=== PATIENT | female | born 1945 | race Caucasian/White ===

== ENCOUNTER → 2019-09-09 14:13 | Outpatient (CLI) | payer OTHER, SELFPAY ==
[2019-09-09 14:26] LABS: RBC Urine None Seen (0-5/HPF)
[2019-09-09 15:12] LABS: Appearance Urine UA CLEAR; Bilirubin Urine UA NEGATIVE (NEGATIVE); Color Urine UA YELLOW; Glucose Urine UA NEGATIVE (Negative); Ketones Urine UA NEGATIVE (NEGATIVE); Leukocyte Esterase Urine UA TRACE (NEGATIVE); Nitrite Urine UA NEGATIVE (Negative); Occult Blood Urine UA NEGATIVE (Negative); Protein Urine UA NEGATIVE (Negative); Urobilinogen Urine UA 0.2 E.U./dL (0.2)
[2019-09-09 15:21] LABS: Squamous Epithelial Cell Urine 5-10 /HPF (0-5/HPF); WBC Urine 1-5/HPF (0-5/HPF)
[2019-09-09 15:22] LABS: Amorphous Sediment Urine 1+; Bacteria Urine Few (2-10); Culture Indicated Urine Specimen Cultured; Mucus Urine 1+ (Negative)
[2019-09-09 16:23] LABS: Add Manual Diff / Slide Review NO; Basophils Absolute Auto 100 /uL (0-100); Basophils Percent Auto 2.1 % (0-2); Eosinophils Absolute Auto 200 /uL (0-450); Eosinophils Percent Auto 3.5 % (2-4); Hematocrit 34.8 % (36-46); Hemoglobin 11.9 g/dL (12.0-16.0); Lymphocytes Absolute Auto 1800 /uL (1100-4500); Lymphocytes Percent Auto 32.8 % (25-40); Mean Corpuscular HGB Conc 34.1 % (30-36); Mean Corpuscular Hemoglobin 30.1 PG (26-34); Mean Corpuscular Volume 88.2 fL (80-100); Monocytes Absolute Auto 400 /uL (0-900); Monocytes Percent Auto 7.6 % (3-14); Neutrophils Absolute Auto 3000 /uL (1500-7000); Platelet Count 237 X10^3/uL (150-400); Red Blood Cell Count 3.94 X10^6/uL (4.0-5.2); Red Cell Distribution Width 14.2 % (11.6-14.8); White Blood Cell Count 5.6 X10^3/uL (4.5-11.0)
[2019-09-09 16:40] LABS: Hemoglobin A1C% w Est Avg Glu 5.5 % (4.0-6.0)
[2019-09-09 16:51] LABS: BUN Creatinine Ratio 18.1 (6-22); Blood Urea Nitrogen 29 mg/dL (7-17); Calcium 10.2 mg/dL (8.4-10.2); Carbon Dioxide 25 mmol/L (22-32); Chloride 103 mmol/L (98-107); Estimated Glomerular Filt Rate 31.3 mL/min (>60); Glucose 106 mg/dL (80-110); HEMOLYSIS < 15 (0-50); Sodium 136 mmol/L (137-145)
[2019-09-09 17:01] LABS: Potassium 5.6 mmol/L (3.4-5.1)
== END ==
PROVIDERS: Family Provider Orthopaedic Surgery; PCP Family Medicine; Referring Provider Orthopaedic Surgery; Visit Provider Orthopaedic Surgery
DX: Z01.818 Encounter for other preprocedural examination (principal); Z01.812 Encounter for preprocedural laboratory examination; N39.9 Disorder of urinary system, unspecified; Z13.1 Encounter for screening for diabetes mellitus; R73.9 Hyperglycemia, unspecified
CPT/HCPCS: 36415; 80048; 81001; 83036; 85025; 87086; 93005

== ENCOUNTER 2019-09-23 10:00 | Inpatient (IN) | payer OTHER, SELFPAY ==
[2019-09-09 12:42] VITALS: BMI 27.4
[2019-09-23] VITALS (13 sets, daily range): BP systolic 96–139; BP diastolic 53–79; PULSE 54–74; RESP 11–16; TEMP 35.6–36.9; O2SAT 94–100; BMI 27.4
--- NOTE | 2019-09-23 06:00 | DI.RAD.S_ITS ---
PROCEDURE: XR HIP W PEL IF DONE RT 2V INDICATIONS: revision right ARLYN TECHNIQUE: AP pelvis and lateral view of the right hip acquired. COMPARISON: [facility], CR, XR PELVIS WITH BILATERAL HIPS 5 VIEWS, 09/15/2019, 12:37. FINDINGS: Bones: Patient is status post right hip arthroplasty, with hardware components in expected positions. The hip joint appears congruent. The visualized bony structures appear intact. Soft tissues: Overlying postoperative changes are noted. No suspicious soft tissue densities. IMPRESSION: Expected appearance of right hip arthroplasty. Dictated by: Na Suarez M.D. on 09/23/2019 at 16:46 Approved by: Na Suarez M.D. on 09/23/2019 at 16:47
[2019-09-23] MEDS: CELECOXIB 200 MG CAPSULE PO (10:44)
[2019-09-23] MEDS: ACETAMINOPHEN 325 MG TABLET 975 MG PO (10:45)
[2019-09-23] MEDS: PREGABALIN 75 MG CAPSULE PO (10:45)
[2019-09-23] MEDS: LACTATED RINGERS 1,000 ML 42 ML IV ×3 (10:49→13:45)
[2019-09-23] MEDS: VANCOMYCIN 1,000 MG/200 ML PIGGYBACK 200 MG IV (10:49)
--- NOTE | 2019-09-23 11:45 | PM.PREOP ---
Pre-operative Note Interval Note History & Physical reviewed/Exam performed by Physician: Yes Changes to H&P: No
--- NOTE | 2019-09-23 11:52 | PM.PREOP ---
Pre-operative Note Interval Note History & Physical reviewed/Exam performed by Physician: Yes Changes to H&P: No
--- NOTE | 2019-09-23 11:52 | PM.OP.1 ---
Operative Date/Time/Diagnoses Date of procedure: 09/23/19 Time of procedure: 11:58 Pre-op diagnosis: right hip instability with h/o right total hip arthroplasty Post-op diagnosis: same Procedure & Clinicians Procedure: Revision right total hip arthroplasty acetabular component, right hip abductor repair Same procedure as scheduled: Yes Indications: The patient has had a right total hip arthroplasty and did well for about 10 years. She then fell and had a right hip dislocation. She has gone on to have problems with multiple episodes of instability and right hip dislocation over the last year or so. It has gotten progressively worse to the extent that she has had to go to the emergency room on multiple occasions. Non-operative management has failed and the patient has requested total hip replacement. The risks, benefits and alternatives to surgery were discussed with the patient prior to proceeding. Risks discussed included, but were not limited to, failure to relieve pain, leg length discrepancy, dislocation, stiffness, infection, nerve damage, deep venous thrombosis, pulmonary embolism, stroke, coma, heart attack, permanent paralysis and , as well as the potential need for eventual revision of the prosthetic. Surgeon: Milagro Wasserman Junior Technical Writer: Zachary Elliott Anesthesia Type: General and Spinal Operative Notes Findings: Mild polyethylene wear, evidence of posterior instability, moderate abductor tear, hip was stable prior to revision at 45? to about 70? of internal rotation, at 90? who stable to about 60-70 degrees of internal rotation, no posterior impingement, no evidence of anterior instability, after revision she was stable at 45? to about 80-90 degrees of internal rotation and at 90? to about 80? of internal rotation, there was no evidence of posterior impingement with maximal extension external rotation and there was no specific evidence of bony impingement. Closure Type: primary Specimen(s): none sent Prosthetic devices, grafts, tissues, transplants, or devices: Depuy [place] 54 x 36 mm +4 10 degree lipped liner, 36 mm +5 by ceramic head Applied: drain(s) Estimated Blood Loss (mL): 250 Blood products transfused: none Procedure in detail: The patient was seen in the pre-operative area, where the patient identified the right hip as the operative site and this was marked with my initials. The patient received pre-operative antibiotics and was taken to the operating room and placed on the operative table in the left lateral decubitus position after satisfactory anesthesia. A time analysis clerk out was performed. The right leg was prepared from the ankle to the iliac crest with ChloroPrep in the usual fashion and draped through sterile drapes. The hip was approached through an approximately 20 cm incision centered over the greater trochanter and curving gently posteriorly as it went proximally using the patient's previous incision. This was carried sharply to the fascia jo ann, which was divided and retracted with a self retaining retractor. The trochanteric bursa was excised with care being taken to avoid the sciatic nerve, which was identified and protected throughout the case. There was of significant tear of the anterior hip abductors and a bare spot on the greater trochanter where they had been torn from the anterior aspect of the greater trochanter. There was some retraction of the hip abductors but it was not severe and it was felt that this was probably a repairable tear. The short external rotators were incised and the capsulomuscular flap that had previously been repaired and clearly had been torn from the greater trochanter was raised and tagged for later repair. The hip was dislocated. Retractors were placed around the femur. Deep cultures were sent from synovial fluid, synovial tissue, and the acetabulum. The femoral head was removed without difficulty. We did a trial reduction with a +9 head with a 32 mm liner that showed some improved stability with no tendency towards impingement. It was felt that we needed the additional stability of going up to a 36 mm head. The patient's acetabular low liner was removed after making a pocket anteriorly and placing the femoral neck anterior to the acetabular component. A trial neutral liner was placed and we did trial reduction with neutral 36 mm +5 and +9 head. She really had good stability with the 36 mm head with both a +5 and +9 head the hip was dislocatable by hyperflexion and internal rotation of about 80?. There was no evidence of specific bony impingement and I did resect a portion of the anterior capsule in the superior area where there was possibility of impingement with maximum flexion and internal rotation. Patient has placed the patient through range of motion on multiple trials looked for the the location of dislocation with maximum abduction flexion and internal rotation and then I removed the trial neutral liner and did a trial with a +10 liner with the lip directed more posterior and inferior. I was able to improve the stability by about 10-15 degrees with a lipped face changing liner. Found the optimum combination of the rotation and location of the lip as well as head neck length. And did go to a +4 10 degree lipped liner. The liner was inserted without difficulty. Repeat trial with a +5 head showed excellent range of motion and stability and she had been lengthened because of the +4 lip liner. Leg lengths look symmetrical there was not excessive tension on the sciatic nerve and there was no evidence of posterior impingement with hyper extension and maximum external rotation. Final ceramic head was selected and placed. Hip was reduced. Marcaine and Exparel were injected. The posterior pseudo capsule was repaired with an interrupted nonabsorbable stitches. Attention was then directed to the hip abductor tear. The hip abductors especially anterior were noted to be torn from the anterior aspect of the trochanter. The bone was carefully freshened. A suture anchor was placed in the trochanter an Arthrex 5.5 by 14.7 bio composite anchor was inserted after drilling with a 2.5 drill bit. Multiple stitches were used to further tacked the abductor to the trochanter. Good quality repair was achieved. space was closed with interrupted sutures. Drain was placed. The fascia was closed with interrupted Vicryl. Subcutaneous tissue was closed with barbed stitches. The patient was stable in the position of sleep, of squatting, and could be put through a range of motion with 45 degrees internal rotation without dislocation. At 90 degrees flexion, internal rotation to 80 was possible before dislocation. This was felt to be satisfactory and the appropriate components were opened, and the trials were removed. The acetabular liner was impacted into position. A brief Betadine soak was performed while trialing with head options. The hip was meticulously irrigated with normal saline. Finally the femoral head was impacted onto the stem. The acetabulum was cleared of all material and the hip relocated one final time. A deep drain was placed and brought out anteriorly. The fascia jo ann was closed with Vicryl. The subcutaneous layer was closed with barbed sutures and SteriStrips. An sherwin dressing was applied and the patient was taken to recovery having tolerated the procedure well. Complications: none Post-operative Condition: stable Disposition: Acute Care Plan for aftercare: The patient will be maintained on a standard total hip replacement protocol with weight bearing as tolerated and posterior hip precautions. She has a hip abduction brace which I told the patient and the family she does not need to use as long as she is alert enough to be compliant with routine posterior hip precautions. She can be weight-bearing as tolerated on the right lower extremity. She should specifically attempt to avoid maximum hip flexion. The patient will receive Aspirin and sequential compression devices for DVT prophylaxis. The patient will be discharged home when safe for the home environment.
[2019-09-23] MEDS: CEFAZOLIN 2 GM/100 ML FROZ.PIGGY IV ×2 (12:24→21:20)
[2019-09-23] MEDS: TRANEXAMIC ACID 1,000 MG VIAL 2000 MG INJ ×2 (12:58→14:16)
--- NOTE | 2019-09-23 13:19 | SUR.OPER ---
Lateral on padded OR bed. Gel axillary roll. Arms secured on padded armboard with pillow supporting top arm. Padded hip positioner braces x4 - anterior and posterior chest and pelvis. Additional gel pad used anterior pelvis. Gel pad under bottom leg from knee to foot and secured with tape over sheet.
[2019-09-23] MEDS: BUPIVACAINE 0.25% W/ EPI 30 ML VIAL 60 ML INJ (13:29)
[2019-09-23] MEDS: BUPIVACAINE LIPOSOME 266 MG/20 ML VIAL INJ (13:29)
[2019-09-23] MEDS: SODIUM CHLORIDE IRRIG SOLUTION 250 ML, POVIDONE-IODINE SPONGE STICKS 1 APPLIC IRR (13:30)
--- NOTE | 2019-09-23 15:57 | SUR.PHASEI ---
1535 IV note continued - IV infusing well, anesthesia reports that it was uncomfortable to her prior to surgery. Gave pt the option of a restart or leaving this one in -- she chose to leave it in.
--- NOTE | 2019-09-23 16:13 | SUR.PHASEI ---
Patient stable, x-ray was done, waiting for floor nurse to return call for report.
--- NOTE | 2019-09-23 16:30 | SUR.PHASEI ---
Addendum entered by Luly Boggs R.N. 09/23/19 16:35: Bed down and locked, call light within reach, SCDs on. R hip dressing remains CDI w/hemovac compressed. Original Note: 1620 to floor w/cane and clothing bag. VSS, C/o mild pain as we were in transport - didn't give a number when asked. Upon arrival, requested that INTERNAL COMBUSTION ENGINE ASSEMBLER give her applesauce (pts choice) in prep for PO rx. INTERNAL COMBUSTION ENGINE ASSEMBLER calling float nurse per primary RN request, to give her med. Pt. very pleasant, answers have been appropriate. No nausea. No questions from pt or staff upon transfer.
[2019-09-23] MEDS: IBUPROFEN 400 MG TABLET PO ×2 (18:52→21:21)
[2019-09-23] MEDS: LACTATED RINGERS 1,000 ML 125 ML IV (18:52)
[2019-09-23] MEDS: ROSUVASTATIN 10 MG TABLET PO (21:20)
[2019-09-23] MEDS: ASPIRIN EC 81 MG TABLET PO (21:20)
[2019-09-23] MEDS: METOPROLOL IR 25 MG TABLET PO (21:20)
[2019-09-23] MEDS: DOCUSATE 100 MG CAPSULE PO (21:20)
[2019-09-23] MEDS: ACETAMINOPHEN 325 MG TABLET 650 MG PO (21:20)
[2019-09-23] MEDS: buPROPion SR 150 MG TAB PO (21:20)
--- NOTE | 2019-09-23 23:32 | PC.NURSE ---
Post-op note: Jen brought from OR via hospital bed, she is awake, pleasant & oriented to self, daughter & situation. Forgetful to events & details which daughter says is baseline. VS are stable, RA oxygen 100% with continuous pulse ox in place. She has reported little to no pain, rates pain to right hip as just achy at 2/10, medicated with PO Tylenol & Ibuprofen. Drsg to right hip remains CDI, hemovac with 60 ml sero-sang drainage tonight. Able to transfer to [facility] and void x 2, needing 1 assist/fww/gait belt. Total hip precautions in place, bed alarm active for safety. Pt using call button appropriately, sometimes waving nurse in when nurse walking by room.
[2019-09-24] MEDS: IBUPROFEN 400 MG TABLET PO ×4 (01:03→13:59)
[2019-09-24] MEDS: LACTATED RINGERS 1,000 ML 125 ML IV (01:03)
[2019-09-24 01:15] VITALS: BP 110/59; PULSE 58; RESP 16; TEMP 36.3; O2SAT 98
[2019-09-24 03:50] VITALS: BP 117/62; PULSE 58; RESP 16; TEMP 36.4; O2SAT 99
[2019-09-24] MEDS: CEFAZOLIN 2 GM/100 ML FROZ.PIGGY IV (05:00)
[2019-09-24 05:58] LABS: Hematocrit 27.9 % (36-46); Hemoglobin 9.5 g/dL (12.0-16.0)
[2019-09-24 07:15] VITALS: BP 110/60; PULSE 60; RESP 18; TEMP 36.2; O2SAT 98
--- NOTE | 2019-09-24 08:27 | PM.PNPO.1 ---
Subjective Subjective Date Patient Seen: 09/24/19 Time Patient Seen: 08:27 Interval history: POD #1 s/p right revision total hip arthroplasty with Dr. Wasserman. Patient doing well this morning. She worked with PT this morning. She has no complaints of pain this morning. Exam Vital Signs (past 8 hours): - 09/24/19 01:15 09/24/19 03:50 09/24/19 07:15 Temperature 97.4 F L 97.6 F 97.2 F L Pulse Rate 58 L 58 L 60 Respiratory Rate 16 16 18 Blood Pressure 110/59 L 117/62 110/60 Pulse Oximetry 98 99 98 Oxygen Delivery Method Room Air Oxygen Flow Rate 0 Narrative Exam Narrative: Patient sitting in bedside chair in NAD. She is alert and oriented X3. Dressing on knee is CDI. Drain is in place. Calves are soft, compressible, and nontender bilaterally. DP pulses symmetrical. Objective Labs Result Diagrams: 09/24/19 05:44 Labs: Laboratory Results - last 24 hr 09/24/19 05:44 Hgb 9.5 L Hct 27.9 L Assessment & Plan Post-op Postoperative Procedures: Procedures Operation Date: 09/23/19 12:15 Actual Procedures Side Surgeon p Revision of acetabular component of hip replacement with right hip abductor repair Right Milagro A MD Lux Pain is well controlled with Tylenol and ibuprofen. Patient provided a prescription for tramadol in case she has any increase in pain while at home. Per Dr. Wasserman note patient will be on a standard total hip replacement protocol with weight bearing as tolerated and posterior hip precautions. She has a hip abduction brace which Dr. Wasserman told the patient and the family she does not need to use as long as she is alert enough to be compliant with routine posterior hip precautions. She can be weight-bearing as tolerated on the right lower extremity. She should specifically attempt to avoid maximum hip flexion. She is working with physical therapy throughout the day. Plan to discharge home today if she is mobilizing safely with adequate pain control. Quality VTE Deep Vein Thrombosis/Pulmonary Embolism Present on Admission: No
[2019-09-24] MEDS: ASCORBIC ACID 500 MG TABLET PO (09:43)
[2019-09-24] MEDS: DOCUSATE 100 MG CAPSULE PO (09:44)
[2019-09-24] MEDS: ACETAMINOPHEN 325 MG TABLET 650 MG PO ×2 (09:44→14:00)
[2019-09-24] MEDS: METOPROLOL IR 25 MG TABLET PO (09:44)
[2019-09-24] MEDS: buPROPion SR 150 MG TAB PO (09:45)
[2019-09-24] MEDS: ASPIRIN EC 81 MG TABLET PO (09:45)
--- NOTE | 2019-09-24 11:20 | PC.NURSE ---
Patients aquacel dressing is cdi. She is moving well with physical therapy. She has a brace that she was wearing prior to surgery as her hip would dislocate. Daughter states that she does not need to wear this according to Dr. Wasserman as the procedure will not cause her leg to have problems anymore. CMS wnl and ppx2. She will work with physical therapy again and then possibly discharge home. Pain level was a 4/10 and she has been using tylenol and ibuprofen which have both been working for her discomfort. Patient has also had 2 bowel movments and is moving well.
--- NOTE | 2019-09-24 11:22 | PT.IIE ---
Current Diagnoses Dislocation of internal right hip prosthesis, initial encounter (09/23/19) Surgery Performed Operation Date: 09/23/19 12:15 Actual Procedures p Revision of acetabular component of hip replacement with right hip abductor repair(Right) - Milagro Wasserman MD Surgical History (Last Updated 09/09/19 @ 13:18 by Mary Ellen Birch RN) History of arthroplasty of right hip (Acute) History of bilateral tubal ligation (Acute) History of open reduction and internal fixation (ORIF) procedure (Acute 01/28/15) Hx of bilateral cataract extraction (Acute) Hx of endovascular stent graft for abdominal aortic aneurysm (Acute ~2014) S/p bilateral blepharoplasty (Acute) Medical History (Last Updated 09/10/19 @ 07:53 by Mary Ellen Birch RN) AAA (abdominal aortic aneurysm) (Acute ~2014) Acid reflux (Acute) Anxiety (Acute) CKD (chronic kidney disease), stage II (Acute) Confusion (Acute) Deviated septum (Acute) Easy bruisability (Acute) Former smoker (Acute) HLD (hyperlipidemia) (Acute) HTN (hypertension) (Acute) PAF (paroxysmal atrial fibrillation) (Acute) Physical Therapy Inpatient Evaluation/Re-Eval M1 PT/OT-IP Prior Functional Status Start: 09/24/19 08:26 Freq: NEEDED Status: Active Protocol: Document 09/24/19 08:50 (Rec: 09/24/19 11:22 [id number]) Medical Review Prior Functional Status Medical History Reviewed Yes Diet/Fluid Consistency Regular Communication Per RN, pt seems to have short term memory deficits. [place] at baseline Mobility and Gait Pt is independent for all mobility at home and community without using AD. Had 3 falls within the past 3 months. Pt dislocated her R hip after her first fall and dislocated again while donning her socks in seated position. Pt seems to have difficulty following precautions. Activities of Daily Living and IADL's independent with all ADLs without AD. Pt's dtr Daniella assisted in IADLs: driving, grocery shopping and driving pt to doctors appointment. Social History Household Members none Living Arrangements House Number of Floors (Floors) One Floor Number of Stairs To Enter/Railing? level entry Home Environment Standard Height Toilet Home Equipment Straight Cane,Tub Transfer Bench,Brick Carrier,Sock Aid,Grab Bars Near Toilet Employment Status Retired Additional Social History Comment Pt lives alone in [place] with dtr Daniella lives closeby in [facility]. Her other dtr lives in [place] but she will fly in tomorrow to stay with pt as long as she needed. Pt had a R ARLYN 07/20/2008 but she recently had multiple dislocations. Per Dr. Wasserman note, pt seems to have difficulty following her precautions. M2 PT-IP Current Condition Start: 09/24/19 08:26 Freq: NEEDED Status: Active Protocol: Document 09/24/19 08:50 HH (Rec: 09/24/19 11:22 [id number]) Physical Therapy Current Condition Current Condition Evaluation Date 09/24/19 Treatment Diagnosis Revision of R ARLYN (post approach) Onset Date 09/23/19 Precautions Posterior Hip Precautions No Hip Flexion > 90 degrees,No Hip Internal Rotation,No Hip Adduction Brace Hip abduction brace Other Precautions Per Dr. Wasserman note, Pt will follow standard total hip replacement protocol with weight bearing as tolerated and posterior hip precautions. She has a hip abduction brace which I told the patient and the family she does not need to use as long as she is alert enough to be compliant with routine posterior hip precautions. She can be weight-bearing as tolerated on the right lower extremity. She should specifically attempt to avoid maximum hip flexion Weight Bearing Status Weight Bearing Status Weight Bear as Tolerated M3 PT-IP Subjective Start: 09/24/19 08:26 Freq: NEEDED Status: Active Protocol: Document 09/24/19 08:50 HH (Rec: 09/24/19 11:22 [id number]) Subjective Physical Therapy Visit Type Type Initial Evaluation Visit Start Time 08:50 Visit Stop Time 09:20 Total Visit Minutes [address]. Number of PLASTIC MOULD MAKER Visits 0 Physical Therapy Visit Comments Patient Comments Im feeling pretty good today. Patient Goals To return home with her 2 dtrs . Therapy Pain Assessment Pain When Pain Assessed During Mobility Pain Present Pain Present Pain Reported Location R hip Intensity 3 Scale Used Numeric (1 - 10) Description Aching Pain Management Techniques Modification of Treatment M4 PT-IP Mobility and Gait Start: 09/24/19 08:26 Freq: NEEDED Status: Active Protocol: Document 09/24/19 08:50 HH (Rec: 09/24/19 11:22 [id number]) PT-Bed Mobility Assessment Supine to Sit Supine to Sit Contact Guard Assistance Scooting Scooting to Edge of Bed Contact Guard Assistance PT-Transfer Assessment Sit to and From Stand Sit to and from Stand Contact Guard Assistance,Use of Upper Extremities Equipment Transfer Assistive Device Gait Belt,Front Wheeled Walker Orthotic/Prosthetic Devices or Brace: Yes Transfers Transfer Destination Bed,Chair,Toilet Transfer Technique Stand Step Pivot Transfer Ability Level of Assist Contact Guard Assistance,Use of Upper Extremities Comments Mobility Comments Pt was in bed upon assessment. With R leg turned in and slightly crossed. Pt does not recall her precautions and needed education on all 3 of them. Pt then performed supine to long sit and primarily WB through her L elbow and hip to avoid hip flexion. She then used UEs to lift and pivot her RLE towards L side of EOB. She was able to scoot forward to EOB. Pt then stood up but did not use staggered stance to avoid hip flexion. Assisted pt to jacek hip abduction brace after since she was not able to reach down and fastern lower compartment. Pt then amb with FWW and CGA to bathroom. She cont needed reminder to avoid hip flexion from stand to sit. She then was able to stand with 1UE support during pericare. Pt amb with PT and FWW after. She demonstrated a trunk forward lean and slow step to gait. She completed 90 ft and reported increased R hip pain and requested to return to room, followed by transferring to chair with call light within reach. Pt was not able to recall post op precautions and this PT provided post op folder. Gait Assessment Gait Gait Assistance Required: Contact Guard Assist Distance (Feet) 90 Able to Maintain Weight Bearing Status Yes During Gait Assistive Devices Assistive Device Gait Belt,Front Wheeled Walker Orthotic/Prosthetic Devices or Brace: Yes Gait Deviations General Gait Pattern Antalgic,Decreased Stride Length,Decreased Feet Clearance,Flexed Trunk,Lateral Trunk Lean,Step-to Gait Factors Limiting Gait Function Factors Limiting Gait Function Decreased Activity Tolerance, Decreased Strength,Limited Range of Motion,Pain,Poor Balance,Poor Safety Awareness Comments Gait Comments see mobility section Stair Climbing Assessment Comments Stair Climbing Comments no stairs at home PT-Balance Assessment Sitting Balance and Reactions Static Sitting Balance Ability Normal Dynamic Sitting Balance Ability Normal Standing Balance and Reactions Static Standing Balance Ability Normal Dynamic Standing Balance Ability Good Device Used FWW M5 PT-IP Objective Assessments Start: 09/24/19 08:26 Freq: NEEDED Status: Active Protocol: Document 09/24/19 08:50 (Rec: 09/24/19 11:22 [id number]) Orientation Orientation/Cognition Level of Alertness Alert Orientation Name,Age,Birthday,Month,Date, Year,Day of Week,Place, Situation Language Function Ability No Deficits Noted Safety Awareness Decreased Safety Awareness Memory Description Short Term Impaired Comments Pt unable to recall post op precautions and needed reminder for transfer techniques to avoid excessive hip flexion Gross Range of Motion Upper Extremity ROM Assessment Within Functional Limits Lower Extremity ROM Assessment Right Impaired Strength Upper Extremity Strength Assessment Within Functional Limits Lower Extremity Strength Assessment Right Impaired Hip 3+/5 Knee 4+/5 Ankle 5/5 M6 PT-IP Treatment Start: 09/24/19 08:26 Freq: NEEDED Status: Active Protocol: Document 09/24/19 08:50 (Rec: 09/24/19 11:22 [id number]) Physical Therapy Treatment Exercises Exercises Ankle Pumps,Gluteal Sets,Quad Sets Education Education Provided Precautions,Weight Bearing Status,Post-Op Packet,Safety Brace Education Donning,Aldrich,Patient M7 PT-IP Assessment and Plan Start: 09/24/19 08:26 Freq: NEEDED Status: Active Protocol: Document 09/24/19 08:50 (Rec: 09/24/19 11:22 [id number]) PT Summary Assessment and Plan Potential Rehabilitation Potential Excellent Status of Condition at Evaluation Stable Summary Impairments Pain,ROM,Strength,Balance, Cognition,Bed Mobility, Transfers,Gait,Activity Tolerance Assessment Summary This is a mod complexity evaluation for this 74yo female s/p POD 2 revision of R ARLYN (posterior approach). PLOF: Independent for all mobility without AD and she lives alone. She did have multiple falls and dislocated her R hip 3 times. CLOF: Pt seems to have poor short term memory and was not able to follow post op precautions consistently. She needed cues during bed mobility and transfers to avoid excessive hip flexion, and she does need help with jacek/doff her hip abduction brace. But she overall demonstrated CGA for all mobility. Pt will require a CG (dtr ) training this pm before d/c to review post op precautions, barce fitting and safe pt handling. Goals Bed Mobility Goal Standby Assistance Transfer Goal Standby Assistance,Front Wheeled Walker Gait Goal Standby Assistance,Front Wheel Walker Gait Distance 150 Other Goals able to recall precautions Days to Meet Goals 3 Frequency of Treatment Frequency Of Treatment Twice a Day Treatment Plan Physical Therapy Treatment Plan Bed Mobility Training,Transfer Training,Gait Training, Therapeutic Exercise,Balance Retraining,Post Op Education, Discharge Planning,Hot or Cold Pack,Neuromuscular Re-ed Other Recommendations and Next Treatment CG training (jacek/doff brace) Focus review precautions transfer training with staggered stance Recommendations To Nursing Amount of Assist Needed 1 Person Assist Discharge Recommendations PT Discharge Recommendations Home with Assistance, Outpatient PT Transportation Needs at Discharge Private Vehicle
[2019-09-24 11:40] VITALS: BP 114/71; PULSE 58; RESP 18; TEMP 36.5; O2SAT 98
--- NOTE | 2019-09-24 13:45 | PT.IPTN ---
Current Diagnoses Dislocation of internal right hip prosthesis, initial encounter (09/23/19) Surgery Performed Operation Date: 09/23/19 12:15 Actual Procedures p Revision of acetabular component of hip replacement with right hip abductor repair(Right) - Milagro Wasserman MD Physical Therapy Treatment Note M2 PT-IP Current Condition Start: 09/24/19 08:26 Freq: NEEDED Status: Active Protocol: Document 09/24/19 08:50 HH (Rec: 09/24/19 11:22 [id number]) Physical Therapy Current Condition Current Condition Evaluation Date 09/24/19 Treatment Diagnosis Revision of R ARLYN (post approach) Onset Date 09/23/19 Precautions Posterior Hip Precautions No Hip Flexion > 90 degrees,No Hip Internal Rotation,No Hip Adduction Brace Hip abduction brace Other Precautions Per Dr. Wasserman note, Pt will follow standard total hip replacement protocol with weight bearing as tolerated and posterior hip precautions. She has a hip abduction brace which I told the patient and the family she does not need to use as long as she is alert enough to be compliant with routine posterior hip precautions. She can be weight-bearing as tolerated on the right lower extremity. She should specifically attempt to avoid maximum hip flexion Weight Bearing Status Weight Bearing Status Weight Bear as Tolerated M3 PT-IP Subjective Start: 09/24/19 08:26 Freq: NEEDED Status: Active Protocol: Document 09/24/19 13:00 HH (Rec: 09/24/19 13:44 [email or web address]) Subjective Physical Therapy Visit Type Type Treatment Note Visit Start Time 13:00 Visit Stop Time 13:21 Total Visit Minutes 21 Notes ismael Brewer attended session. AVELINO Marie confirmed with Dr. Wsaserman that pt only needs to wear hip abduction brace if pt is unable to follow post op precautions. Number of TRAVEL OT Visits 0 Physical Therapy Visit Comments Patient Comments Im ready to go home Therapy Pain Assessment Pain When Pain Assessed During Mobility Pain Present Pain Present Pain Reported Location R hip Intensity 3 Scale Used Numeric (1 - 10) Description Aching Pain Management Techniques Modification of Treatment M4 PT-IP Mobility and Gait Start: 09/24/19 08:26 Freq: NEEDED Status: Active Protocol: Document 09/24/19 13:00 HH (Rec: 09/24/19 13:44 HH [id number]) PT-Transfer Assessment Sit to and From Stand Sit to and from Stand Contact Guard Assistance,Use of Upper Extremities Equipment Transfer Assistive Device Gait Belt,Front Wheeled Walker Orthotic/Prosthetic Devices or Brace: Yes Transfers Transfer Destination Chair Transfer Technique Stand Step Pivot Transfer Ability Level of Assist Contact Guard Assistance,Use of Upper Extremities Comments Mobility Comments Pt was up in chair upon PT arrival. Dtr at bedside. Pt was only able to recall 1/3 precautions and needed cues to remind her using staggered stance for sit to stand. Pt needed to use trunk rocking motion x3 to stand up. She then amb and did step climbing with PT and dtr. She returned to chair safely after with dtr CGA and verbal cues for hand placements. Call light placed within reach,. Gait Assessment Gait Gait Assistance Required: Contact Guard Assist Distance (Feet) 180 Able to Maintain Weight Bearing Status Yes During Gait Assistive Devices Assistive Device Gait Belt,Front Wheeled Walker Orthotic/Prosthetic Devices or Brace: Yes Gait Deviations General Gait Pattern Antalgic,Decreased Stride Length,Decreased Feet Clearance,Flexed Trunk,Lateral Trunk Lean,Step-to Gait Factors Limiting Gait Function Factors Limiting Gait Function Decreased Activity Tolerance, Decreased Strength,Limited Range of Motion,Pain,Poor Balance,Poor Safety Awareness Comments Gait Comments Pt amb with step to pattern and FWW CGA. Pt did 90 feet with PT CGA followed by another 90 feet with dtr. Pt overall demonstrates antalgic gait with trunk lean to L. Stair Climbing Assessment Evaluation Level of Assist On Stairs Contact Guard Assistance,1 Person Assistance Devices Stair Climbing Assistive Devices Front Wheel Walker Technique/Endurance Stair Climbing Direction Ascend and Descend Stair Climbing Technique Step to Step Number of Steps Climbed 1 Stair Climbing Set # Repetitions (reps) 2 Comments Stair Climbing Comments Pt needed max cues for step sequence and walker placement on platform step. Pt was able to follow 1 step command and needed PT/ CG to stabilize her walker during ascend/ descend . M5 PT-IP Objective Assessments Start: 09/24/19 08:26 Freq: NEEDED Status: Active Protocol: Document 09/24/19 08:50 HH (Rec: 09/24/19 11:22 [id number]) Orientation Orientation/Cognition Level of Alertness Alert Orientation Name,Age,Birthday,Month,Date, Year,Day of Week,Place, Situation Language Function Ability No Deficits Noted Safety Awareness Decreased Safety Awareness Memory Description Short Term Impaired Comments Pt unable to recall post op precautions and needed reminder for transfer techniques to avoid excessive hip flexion Gross Range of Motion Upper Extremity ROM Assessment Within Functional Limits Lower Extremity ROM Assessment Right Impaired Strength Upper Extremity Strength Assessment Within Functional Limits Lower Extremity Strength Assessment Right Impaired Hip 3+/5 Knee 4+/5 Ankle 5/5 M6 PT-IP Treatment Start: 09/24/19 08:26 Freq: NEEDED Status: Active Protocol: Document 09/24/19 08:50 HH (Rec: 09/24/19 11:22 HH [id number]) Physical Therapy Treatment Exercises Exercises Ankle Pumps,Gluteal Sets,Quad Sets Education Education Provided Precautions,Weight Bearing Status,Post-Op Packet,Safety Brace Education Donning,Sigurd,Patient M7 PT-IP Assessment and Plan Start: 09/24/19 08:26 Freq: NEEDED Status: Active Protocol: Document 09/24/19 13:00 HH (Rec: 09/24/19 13:44 HH [email or web address]) PT Summary Assessment and Plan Potential Rehabilitation Potential Excellent Status of Condition at Evaluation Stable Summary Impairments Pain,ROM,Strength,Balance, Cognition,Bed Mobility, Transfers,Gait,Activity Tolerance Assessment Summary Pt shows improved amb distance and mobility without using abduction brace. She overall needed constant cues for post op precautions, transfer techniques and step sequence. Pt's dtr demonstrates good pt handling and able to provide cues during CG training. Pt is safe to be d/c at this point with both daughters' assistance, followed by outpatient PT. Goals Bed Mobility Goal Standby Assistance Transfer Goal Standby Assistance,Front Wheeled Walker Gait Goal Standby Assistance,Front Wheel Walker Gait Distance 150 Other Goals able to recall precautions Days to Meet Goals 3 Frequency of Treatment Frequency Of Treatment Twice a Day Treatment Plan Physical Therapy Treatment Plan Bed Mobility Training,Transfer Training,Gait Training, Therapeutic Exercise,Balance Retraining,Post Op Education, Discharge Planning,Hot or Cold Pack,Neuromuscular Re-ed Other Recommendations and Next Treatment CG training (jacek/doff brace) Focus review precautions transfer training with staggered stance Recommendations To Nursing Amount of Assist Needed 1 Person Assist Discharge Recommendations PT Discharge Recommendations Home with Assistance, Outpatient PT Transportation Needs at Discharge Private Vehicle
--- NOTE | 2019-09-24 15:04 | CM.DANOTE ---
DCP Brief Assessment Note Patient is a 74 year old female who was admitted on 09/23/19 for Right Hip Replacement Surg. Pt has [facility] for insurance and her PCP is Dr. Messi Miranda. EMR was reviewed. Per Ortho MD, pt with a hx of multiple hip dislocations and pt tolerated procedure well and safe for d/c after PT eval and recommendations. No identified barriers to discharge. Per PT, pt was able to ambulate and had Dtr attend for CG training and recommend safe d/c home with Dtr assist and outpt PT and pt safe for transport via private vehicle. No bedside assessment completed due to triage needs and no barriers identified. Plan: Patient to d/c home via Dtr POV today and to stay with pt to assist and pt is set up at [facility] in [place] for outpt PT. No SW needs at this time. ALLYSON Steiner
== END 2019-09-24 14:35 | disposition home or self-care (01) | DRG 468 ==
PROVIDERS: Admitting Provider Orthopaedic Surgery; Family Provider Orthopaedic Surgery; PCP Family Medicine; Referring Provider Family Medicine; Visit Provider Orthopaedic Surgery
PROC: 0SP909Z Removal of Liner from Right Hip Joint, Open Approach (ICD-10-PCS; principal; 2019-09-23 12:15)
DX: T84.020A Dislocation of internal right hip prosthesis, initial encounter (principal); E78.5 Hyperlipidemia, unspecified; I48.0 Paroxysmal atrial fibrillation; I12.9 Hypertensive chronic kidney disease with stage 1 through stage 4 chronic kidney disease, or unspecified chronic kidney disease; S39.013A Strain of muscle, fascia and tendon of pelvis, initial encounter; N18.2 Chronic kidney disease, stage 2 (mild); Z87.891 Personal history of nicotine dependence
CPT/HCPCS: 36415; 73502; 85014; 85018; 87070; 87075; 87077; 87176; 87186; 87205; 97116; 97162; C1776; C9290; J0690; J2704

== ENCOUNTER 2019-12-23 01:52 | Observation (INO) | payer OTHER, SELFPAY ==
[2019-09-23 18:00] VITALS: BMI 27.4
[2019-12-23] VITALS (21 sets, daily range): BP systolic 109–149; BP diastolic 49–70; PULSE 58–79; RESP 8–20; TEMP 36.1–37.6; O2SAT 92–100; BMI 26.3
--- NOTE | 2019-12-23 | DI.RAD.S_ITS ---
PROCEDURE: XR PELVIS 1-2V INDICATIONS: dislocated right hip TECHNIQUE: 2 views of the pelvis acquired. COMPARISON: [facility], CR, XR PELVIS WITH LATERAL HIP RIGHT, 10/22/2019, 10:47. FINDINGS: Bones: There is dislocation of the right hip prosthesis, likely posterosuperiorly. No definite fracture identified on the current study. Mild to moderate degeneration of the left hip again noted. Soft tissues: Visualized bowel gas pattern is normal. An endovascular stent graft is partially visualized in the elbows. Surgical clips are noted in the left hemipelvis. IMPRESSION: 1. Dislocation of right hip prosthesis. No definite fracture identified. Dictated by: Douglas Rosario M.D. on 12/23/2019 at 9:45 Approved by: Douglas Rosario M.D. on 12/23/2019 at 9:47
[2019-12-23] MEDS: HYDROMORPHONE 0.5 MG INJ IV ×3 (02:14→19:59)
[2019-12-23] MEDS: SODIUM CHLORIDE 0.9% 1,000 ML 100 ML IV ×3 (02:14→16:13)
[2019-12-23 02:26] LABS: Add Manual Diff / Slide Review NO; Basophils Absolute Auto 100 /uL (0-100); Basophils Percent Auto 1.1 % (0-2); Eosinophils Absolute Auto 0 /uL (0-450); Eosinophils Percent Auto 0.4 % (2-4); Hematocrit 33.1 % (36-46); Hemoglobin 11.8 g/dL (12.0-16.0); Lymphocytes Absolute Auto 1300 /uL (1100-4500); Lymphocytes Percent Auto 14.8 % (25-40); Mean Corpuscular HGB Conc 35.6 % (30-36); Mean Corpuscular Hemoglobin 31.5 PG (26-34); Mean Corpuscular Volume 88.5 fL (80-100); Monocytes Absolute Auto 500 /uL (0-900); Monocytes Percent Auto 5.3 % (3-14); Neutrophils Absolute Auto 7100 /uL (1500-7000); Neutrophils Percent Auto 78.4 % (50-75); Platelet Count 239 X10^3/uL (150-400); Red Blood Cell Count 3.74 X10^6/uL (4.0-5.2); Red Cell Distribution Width 13.6 % (11.6-14.8); White Blood Cell Count 9.1 X10^3/uL (4.5-11.0)
[2019-12-23 02:32] LABS: Alanine Aminotransferase 22 IU/L (<35); Albumin 4.3 g/dL (3.5-5.0); Albumin Globulin Ratio 1.5 (1.0-2.8); Alkaline Phosphatase 66 U/L (38-126); Aspartate Aminotransferase 36 IU/L (14-36); BUN Creatinine Ratio 15.7 (6-22); Bilirubin Total 0.4 mg/dL (0.2-1.3); Blood Urea Nitrogen 17 mg/dL (7-17); Calcium 9.8 mg/dL (8.4-10.2); Carbon Dioxide 24 mmol/L (22-32); Chloride 102 mmol/L (98-107); Estimated Glomerular Filt Rate 49.3 mL/min (>60); Globulin 2.9 g/dL (1.7-4.1); Glucose 116 mg/dL (80-110); HEMOLYSIS < 15 (0-50); Potassium 3.8 mmol/L (3.4-5.1); Sodium 132 mmol/L (137-145); Total Protein 7.2 g/dL (6.3-8.2)
--- NOTE | 2019-12-23 05:05 | PM.HP.1 ---
History of Present Illness History of Present Illness Date Patient Seen: 12/23/19 Time Patient Seen: 02:30 Chief complaint: Total Right Hip Dislocation Narrative: Ms. Keiry Mayes is a 74-year-old female patient with a history hypertension, paroxysmal atrial fibrillation, abdominal aortic aneurysm without rupture, chronic kidney disease stage 2, hyperlipidemia, osteoarthritis, anxiety depression and glaucoma who presents to the ER at [place] after bending over in her recliner to put a sock on and dislocating her right total hip. The patient presented to the ER at which time they attempted close reduction with procedural sedation with ketamine and propofol x2 without successful reduction. Patient had undergone a revision of her right total hip acetabular component on September [address] Wasserman. The patient reports no complications following the procedure and had not done extensive physical therapy related to the COVID-19 pandemic. The ER physician contacted Dr. Rainey, orthopedics in consultation who agreed to accept the patient and recommended transfer to [facility]. Report is received from Dr. Whelan at [facility] in agreed to accept the patient as a direct admit to the acute care floor. In the ER at [facility] in [place] the patient had a blood pressure 141/73, temperature 97.9?, heart rate of 66, respiratory rate of 24. Patient was transported [facility] without complication. Upon admission to the acute care floor the patient is found to have a temperature 99.7?, blood pressure 130/70, heart rate 75, respirations of 18 saturating 100% air. Patient she is complaint is right hip pain in the low posterior and lateral right hip with any movement. The patient reports no recent illness, fevers or chills, COVID-19 exposures. She denies headache or visual changes nasal congestion or sore throat. She denies complaints of chest pain or palpitations, she shortness of breath cough or wheezing. She has no abdominal pain, heartburn, nausea vomiting. She denies constipation or diarrhea and has no difficulty urinating. Patient History Medical History (Updated 09/10/19 @ 07:53 by Mary Ellen Birch RN) AAA (abdominal aortic aneurysm) (Acute ~2015) Acid reflux (Acute) Anxiety (Acute) CKD (chronic kidney disease), stage II (Acute) Confusion (Acute) Deviated septum (Acute) Easy bruisability (Acute) Former smoker (Acute) HLD (hyperlipidemia) (Acute) HTN (hypertension) (Acute) PAF (paroxysmal atrial fibrillation) (Acute) Surgical History (Updated 12/23/19 @ 05:19 by EMILY George) History of arthroplasty of right hip (Acute) History of bilateral tubal ligation (Acute) History of open reduction and internal fixation (ORIF) procedure (Acute 01/28/15) History of 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 joint (Acute) Hx of bilateral cataract extraction (Acute) Hx of endovascular stent graft for abdominal aortic aneurysm (Acute ~2014) S/p bilateral blepharoplasty (Acute) Family & Social History Family History (Updated 12/23/19 @ 05:20 by EMILY George) Father Peripheral vascular disease Coronary artery disease Hypertension Mother Alzheimer's dementia Coronary artery disease Social History: household members none Prior Living Arrangements House Safety & Behavioral: Feels Safe in Current Yes Environment Been Physically Hurt or No Threatened By a Person Suicidal Ideation Description None Suicide Plan Description No Plan Tobacco & Substance use: Tobacco type cigarettes Smoking Status Former smoker alcohol intake former Substance Use Type does not use Meds Home Medications and Allergies Home Medications Medication Instructions Recorded Confirmed Type amlodipine 10 mg PO BEDTIME 09/09/19 12/23/19 History bupropion HCl 150 mg PO BID 09/09/19 12/23/19 History lisinopril-hydrochlorothiazide 1 tab PO DAILY 09/09/19 12/23/19 History loratadine [Claritin] 10 mg PO DAILY PRN 09/09/19 12/23/19 History metoprolol tartrate 25 mg PO BID 09/09/19 09/23/19 History rosuvastatin 10 mg PO DAILY 09/09/19 12/23/19 History acetaminophen [Tylenol Extra 500 mg PO QID PRN #30 tab 09/24/19 Rx Strength] ascorbic acid (vitamin C) [Vitamin 500 mg PO BID #30 tab 09/24/19 Rx C] aspirin 81 mg PO BID #30 tab 09/24/19 12/23/19 Rx docusate sodium [DOK] 100 mg PO BID #30 cap 09/24/19 Rx ferrous sulfate 325 mg PO BIDWM #30 tab 09/24/19 Rx ibuprofen 400 mg PO Q4HR #30 tab 09/24/19 Rx tramadol 50 mg PO BID PRN #10 tab 09/24/19 Rx Allergies Allergy/AdvReac Type Severity Reaction Status Date / Time No Known Drug Allergies Allergy Verified 09/23/19 10:28 Review of Systems Review of Systems ROS: Yes All systems reviewed with the patient and are negative except as otherwise documented Exam Vital Signs (past 8 hours): - 12/23/19 01:59 12/23/19 02:15 Temperature 99.7 F H Pulse Rate 75 Respiratory Rate 18 Blood Pressure 130/70 Pulse Oximetry 100 100 Oxygen Delivery Method Room Air Oxygen Flow Rate 0 Narrative Exam Narrative: GENERAL APPEARANCE: well developed, well nourished, in no acute distress. HEENT: Normocephalic, PERRLA, conjunctiva clear, EOMs intact without nystagmus, no rhinorrhea, mucous membranes are moist and pink. NECK/THYROID: neck supple, no JVD, trachea midline. LYMPH NODES: no cervical or supraclavicular lymphadenopathy. SKIN: [place], warm and dry. HEART: regular rate and rhythm, S1-S2, no murmur, no rubs or gallops, brisk capillary refill, no edema LUNGS: clear to auscultation bilaterally, no coarseness crackles or wheezing, no cough present CHEST: Symmetrical movement, no accessory muscle use, good tidal volume. ABDOMEN: Soft, no distention, no abdominal tenderness, no guarding or peritoneal signs, no organomegaly, no flank or suprapubic tenderness, active bowel tones. EXTREMITIES: Right leg shortened and internally rotated, CMS intact in all extremities strength is 5/5 and symmetrical, no deformities or joint effusions. NEUROLOGIC: AAO x4, difficulty with short-term memory recall cranial nerves II-XII grossly intact, sensation intact to light touch, hearing grossly normal to speech. PSYCH: Good eye contact, anxious and tearful, cooperative Objective Labs Result Diagrams: 12/23/19 02:15 12/23/19 02:15 Labs: Laboratory Results - last 24 hr 12/23/19 12/23/19 02:15 02:15 WBC 9.1 RBC 3.74 L Hgb 11.8 L Hct 33.1 L MCV 88.5 MCH 31.5 MCHC 35.6 RDW 13.6 Plt Count 239 Neut % (Auto) 78.4 H Lymph % (Auto) 14.8 L Young % (Auto) 5.3 Eos % (Auto) 0.4 L Baso % (Auto) 1.1 Neut # (Auto) 7100 H Lymph # (Auto) 1300 Young # (Auto) 500 Eos # (Auto) 0 Baso # (Auto) 100 Sodium 132 L Potassium 3.8 Chloride 102 Carbon Dioxide 24 BUN 17 Creatinine 1.08 H Estimated GFR 49.3 L BUN/Creatinine Ratio 15.7 Glucose 116 H Calcium 9.8 Total Bilirubin 0.4 AST 36 ALT 22 Alkaline Phosphatase 66 Total Protein 7.2 Albumin 4.3 Globulin 2.9 Albumin/Globulin Ratio 1.5 Assessment & Plan Assessment & Plan narrative: This is 74-year-old female who presents to to [facility] ER in [place] with a dislocated right total hip. Attempted close reduction failed and the patient was transferred [facility] for definitive treatment. 1. 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 Wasserman. -the patient is bending over in a recliner putting on a sock 1 or hip dislocated. There was no fall or trauma associated. Attempted closed reduction of the hip at [facility] was unsuccessful. -, orthopedics, was contacted by Dr. Whelan at [facility] as agreed to accept the patient. -the patient is NPO. -normal saline infusing at 100 cc/hour. 2. Essential hypertension, present on admission, stable -blood pressure upon arrival is 130/70. -will continue patient's home regimen of metoprolol 25 mg daily and lisinopril hydrochlorothiazide 20 mg/12.5 mg and amlodipine 10 mg daily. 3. Paroxysmal atrial fibrillation, chronic, in sinus rhythm, stable. -no complaints of chest pain or palpitations. -will continue home regimen of metoprolol 25 mg daily. 4. Chronic kidney disease stage 2, chronic, presumed stable. -no labs were drawn at the [facility] prior to transfer. -will obtain serum chemistries. 5. Abdominal aortic aneurysm without rupture, present on admission, stable. -the patient underwent stenting of the aneurysm in 2007. -the patient has been under continuing surveillance with no complications, no reports of vascular claudication abdominal or back pain. -condition stable with ongoing surveillance. Isolation: None COVID-19 screening: NEGATIVE, result from from rapid COVID-19 testing at [facility]. Report on chart. VTE prophylaxis: Bilateral SCDs, chemical prophylaxis contraindicated with pending procedure. IV fluid: Normal saline 100 cc/hour Diet: NPO Code status: FULL CODE, she designates her daughter to be her surrogate decision maker. The patient is accepted as a direct admit from [facility] to a higher level of care for orthopedic services not available at the sending facility. The patient is admitted observation with expected length of stay to be less than 2 midnights. Scores GCS Les coma scale eye opening: Spontaneous Powers coma scale verbal response: Orientated Powers coma scale motor response: Obey commands Powers coma scale total score: 15
--- NOTE | 2019-12-23 05:43 | PC.NURSE ---
Addendum entered by Toña Torres R.N. 12/23/19 06:29: Pt only voided 50cc on a bedpan this morning. Then bladder scanned for 25cc. Reported to EMILY Li; IVF to be increased Original Note: Pt admitted to unit with daughter Daniella at bedside. Reported Rapid COVID NEG from [facility]. Pt had previous hip sx in September. Pt is AxOx2; unsure of exact date. Daughter reports that her mother has the beginnings of some dementia and forgetfullness. Able to use call salas appropriately. Right leg is turned inward and shorted. Very painful for patient to move. Pillow under right hip to alleviate pressure. Dilaudid IV given for pain with some relief. Denies nausea Tele: NSR, BBB. Denies chest pain B/L SCDs on Kept NPO NS@100mL/hr
--- NOTE | 2019-12-23 06:48 | P.CONS_ITS ---
History of Present Illness Consult details Date Patient Seen: 12/23/19 Time Patient Seen: 06:48 Chief complaint: Total Right Hip Dislocation Reason for consult: dislocated R ARLYN Narrative: Patient is a 74-year-old female patient with a history of a right total hip arthroplasty that did well for about 10 years. She then fell and had a right hip dislocation. She has gone on to have problems with multiple episodes of instability and right hip dislocation over the last year. It has gotten progressively worse to the extent that she has had to go to the emergency room on multiple occasions. She underwent revision of the right ARLYN acetabular component on 09/23/19. She presented to the ER at [place] after bending over in her recliner to put a sock on and dislocating her right total hip. The patient presented to the ER at which time they attempted close reduction with procedural sedation with ketamine and propofol x2 without successful reduction. The ER physician contacted Dr. Rainey, orthopedics in consultation who agreed to accept the patient and recommended transfer to [facility]. Report is received from Dr. Whelan at [facility] in agreed to accept the patient as a direct admit to the acute care floor. Meds Home Medications and Allergies Home Medications Medication Instructions Recorded Confirmed Type amlodipine 10 mg PO BEDTIME 09/09/19 12/23/19 History bupropion HCl 150 mg PO BID 09/09/19 12/23/19 History lisinopril-hydrochlorothiazide 1 tab PO DAILY 09/09/19 12/23/19 History loratadine [Claritin] 10 mg PO DAILY PRN 09/09/19 12/23/19 History metoprolol tartrate 25 mg PO BID 09/09/19 09/23/19 History rosuvastatin 10 mg PO DAILY 09/09/19 12/23/19 History acetaminophen [Tylenol Extra 500 mg PO QID PRN #30 tab 09/24/19 Rx Strength] ascorbic acid (vitamin C) [Vitamin 500 mg PO BID #30 tab 09/24/19 Rx C] aspirin 81 mg PO BID #30 tab 09/24/19 12/23/19 Rx docusate sodium [DOK] 100 mg PO BID #30 cap 09/24/19 Rx ferrous sulfate 325 mg PO BIDWM #30 tab 09/24/19 Rx ibuprofen 400 mg PO Q4HR #30 tab 09/24/19 Rx tramadol 50 mg PO BID PRN #10 tab 09/24/19 Rx Allergies Allergy/AdvReac Type Severity Reaction Status Date / Time No Known Drug Allergies Allergy Verified 09/23/19 10:28 Exam Vital Signs (past 8 hours): - 12/23/19 01:59 12/23/19 02:15 12/23/19 05:59 Temperature 99.7 F H Pulse Rate 75 Respiratory Rate 18 Blood Pressure 130/70 Pulse Oximetry 100 100 99 12/23/19 06:00 Temperature 97.6 F Pulse Rate 68 Respiratory Rate 18 Blood Pressure 114/65 Pulse Oximetry 98 Oxygen Delivery Method Room Air Oxygen Flow Rate 0 Narrative Exam Narrative: Shortened internally rotated RLE. NV intact in the foot. Able to wiggle toes, no numbness. Foot is warm and well perfused. Objective Labs Result Diagrams: 12/23/19 02:15 12/23/19 02:15 Labs: Laboratory Results - last 24 hr 12/23/19 12/23/19 02:15 02:15 WBC 9.1 RBC 3.74 L Hgb 11.8 L Hct 33.1 L MCV 88.5 MCH 31.5 MCHC 35.6 RDW 13.6 Plt Count 239 Neut % (Auto) 78.4 H Lymph % (Auto) 14.8 L [place] % (Auto) 5.3 Eos % (Auto) 0.4 L Baso % (Auto) 1.1 Neut # (Auto) 7100 H Lymph # (Auto) 1300 [place] # (Auto) 500 Eos # (Auto) 0 Baso # (Auto) 100 Sodium 132 L Potassium 3.8 Chloride 102 Carbon Dioxide 24 BUN 17 Creatinine 1.08 H Estimated GFR 49.3 L BUN/Creatinine Ratio 15.7 Glucose 116 H Calcium 9.8 Total Bilirubin 0.4 AST 36 ALT 22 Alkaline Phosphatase 66 Total Protein 7.2 Albumin 4.3 Globulin 2.9 Albumin/Globulin Ratio 1.5 Assessment & Plan Assessment & Plan narrative: Patient is a 74 yo F with a history of multiple d islocations over the past year. She had her acetabular component revised on 09/23/19. Patient dislocated yesterday while putting on her socks. She was seen in [facility] where an attempt at closed reduction was perforemd. They were unsuccessful. Patient was then transferred to [facility]. Plan is for closed reduction in the OR. - NPO - NWB RLE - pain control - OCTOR for closed reduction vs. possible open reduction Time Spent With Patient Time with patient: 15-24 minutes
[2019-12-23] MEDS: HYDROMORPHONE 2 MG INJ 1 MG IV (07:58)
--- NOTE | 2019-12-23 10:21 | PM.PREOP ---
Pre-operative Note Interval Note History & Physical reviewed/Exam performed by Physician: Yes Changes to H&P: No H&P completed within 30 days and has changed as indicated here:: Plan for closed reduction R ARLYN vs. possible open reduction. I discussed the risks and benefits of surgery with the patient including the risk of inability to close reduce the dislocation, iatrogenic fracture, need for open reduction, need for future surgeries, damage to local strucutres such as vessels and nerves, etc. Patient demonstrates understanding and wishes to proceed.
[2019-12-23] MEDS: LACTATED RINGERS 1,000 ML 42 ML IV (10:25)
[2019-12-23] MEDS: MIDAZOLAM 2 MG/2 ML VIAL IV (10:29)
--- NOTE | 2019-12-23 10:32 | SUR.HOLD ---
Pt brought to [facility] from room [address] Rainey and Dr. Stephens. Midazolam given as ordered and po pain meds per Dr. Loera not to be given per
--- NOTE | 2019-12-23 10:39 | SUR.OPER ---
Supine on padded OR bed, head on pillow, arms secured on padded arm boards at <90 degrees abduction, legs uncrossed, 2 RN's and standing on both sides of OR table with patient.
--- NOTE | 2019-12-23 10:42 | PC.NURSE ---
Addendum entered by Jacque Singh R.N. 12/23/19 16:18: Post-op: Late entry Arrived back to room 211 at 1130. VSS, 2L O2 w/ cont. pulse ox in place. Abduction pillow in place to BLE's. CMS+, PP+. Patient denied pain or discomfort, but has been more confused than she was prior to surgery (daughter reports likely related to anesthesia). Did not recall where she was, what had happened and was quite nervous and restless. A few times was found to be pulling at tele monitor, lines, cords and abduction pillow. Much more calm since her daughter has been at bedside. This service writer advised discharge planner Sherry that they might want to consider moving patient into a view room this evening for easier observation. Patient voided once on bedpan for us and denied any further need to void. This service writer spoke with PT and asked if they can get her onto the commode when the mobilize her for the first time and they agreed to do that. IVF per orders, site in R AC WNL. Bed alarm on, call light within reach. Original Note: Off floor to surgery approx [id number]. This service writer gave [employer]IPMENT [employer] patient's daughter's name and contact information and asked her to have Dr Wasserman call with an update once patient is out of surgery. This service writer called Daniella to let her know that they were taking patient off unit to pre-op at that time.
--- NOTE | 2019-12-23 10:47 | PM.OP.1 ---
Operative Date/Time/Diagnoses Date of procedure: 12/23/19 Time of procedure: 10:48 Pre-op diagnosis: posterior dislocation of right total hip arthroplasty Post-op diagnosis: same Procedure & Clinicians Procedure: closed reduction right total hip arthroplasty Same procedure as scheduled: Yes Indications: dislocated right total hip arthroplasty with failure of closed reduction at outside ER Surgeon: Derick Rainey Click Yes if Unassisted: Yes Anesthesia Type: General Operative Notes Findings: posterior dislocation right total hip arthroplasty Hip stable to 90 degrees flexion and IR to 45. Closure Type: not applicable Specimen(s): none sent Procedure in detail: Patient was met in the preoperative holding area where the site and side of surgery marked by MD. All last minute questions were answered. Reviewed consent was performed including the risk of failure of closed reduction, need for future surgeries, need for open reduction, iatrogenic fracture, etc. Patient demonstrates understanding of these risks and wishes to proceed with closed reduction right total hip arthroplasty versus open reduction. Patient was brought back in the operating room where she was transferred on the operating room table and induced under general anesthesia. A time-out was performed verifying the site side of surgery. It was noted that the patient's leg is shortened and internally rotated. I then climbed up onto the operating room table and had 2 since holding down her pelvis. I brought the right leg up into 90? of flexion I abducted the leg full traction and internally rotated. At this point I felt a palpable clunk and audible clunk was heard. The leg was then able to be brought down to normal alignment. C-arm was brought in and verified reduction of the right total hip arthroplasty. Hip was then brought into 90? of flexion and internally rotated 45? and found to be stable. Leg was again brought back into full extension and final films were obtained. A hip abduction pillow was then placed. Patient was transferred onto the hospital room bed and extubated. Complications: none Post-operative Condition: stable Disposition: PACU Plan for aftercare: Abduction pillow at all times when not ambulating, strict posterior hip precautions. Follow up with Dr. Wasserman.
--- NOTE | 2019-12-23 10:50 | DI.RAD.S_ITS ---
PROCEDURE: XR HIP W PEL IF DONE RT 2V INDICATIONS: RIGHT HIP RELOCATION TECHNIQUE: 2 view(s) of the hip acquired. COMPARISON: [facility], CR, XR PELVIS WITH LATERAL HIP RIGHT, 10/22/2019, 10:47. [facility], CR, XR HIP W PEL IF DONE RT 2V, 09/23/2019, 15:58. FINDINGS: Bones: Patient is status post right hip arthroplasty, with hardware components in expected positions. The hip joint appears congruent. The visualized bony structures appear intact. Soft tissues: Overlying postoperative changes are noted. No suspicious soft tissue densities. IMPRESSION: Right hip arthroplasty components in expected position following reduction. Dictated by: Jessica Mcallister MD, PhD on 12/23/2019 at 11:25 Approved by: Jessica Mcallister MD, PhD on 12/23/2019 at 11:26
--- NOTE | 2019-12-23 11:32 | OT.IPNOTE ---
Pt to have surgery today , therefore to see pt tomorrow for OT eval.
--- NOTE | 2019-12-23 15:03 | PM.PN.1 ---
Subjective Subjective Date Patient Seen: 12/23/19 Time Patient Seen: 15:14 Interval history: Ms. Keiry Mayes is a 74-year-old female patient with a history hypertension, paroxysmal atrial fibrillation, abdominal aortic aneurysm without rupture, chronic kidney disease stage 2, hyperlipidemia, osteoarthritis, anxiety depression and glaucoma who presents to the ER at [facility] after bending over in her recliner to put a sock on and dislocating her right total hip. She underwent closed reduction of her right dislocated hip this morning and is currently doing well postoperatively. She denies complaints after her surgery and will start physical therapy tomorrow. Agree with the assessment and plan as documented by EMILY George. Exam Vital Signs (past 8 hours): - 12/23/19 07:37 12/23/19 08:09 12/23/19 10:23 Temperature 98.2 F 97.9 F Pulse Rate 69 79 Respiratory Rate 20 20 Blood Pressure 111/60 149/66 H Pulse Oximetry 100 93 97 12/23/19 10:52 12/23/19 10:56 12/23/19 11:01 Temperature 97 F L Pulse Rate 60 71 63 Respiratory Rate 8 L 15 12 Blood Pressure 115/58 L 119/55 L 110/55 L Pulse Oximetry 92 98 98 12/23/19 11:12 12/23/19 11:20 12/23/19 11:50 Temperature 97.9 F 97.5 F L 97.5 F L Pulse Rate 66 66 58 L Respiratory Rate 16 14 14 Blood Pressure 109/56 L 119/70 113/62 Pulse Oximetry 97 98 100 12/23/19 12:25 12/23/19 13:32 12/23/19 14:44 Temperature 97.5 F L 97.5 F L Pulse Rate 69 72 64 Respiratory Rate 16 16 16 Blood Pressure 125/49 L 132/62 Pulse Oximetry 100 100 97 Fraction of Inspired Oxygen 2 Oxygen Delivery Method Nasal Cannula Oxygen Flow Rate 2 Objective Labs Result Diagrams: 12/23/19 02:15 12/23/19 02:15 Labs: Laboratory Results - last 24 hr 12/23/19 12/23/19 02:15 02:15 WBC 9.1 RBC 3.74 L Hgb 11.8 L Hct 33.1 L MCV 88.5 MCH 31.5 MCHC 35.6 RDW 13.6 Plt Count 239 Neut % (Auto) 78.4 H Lymph % (Auto) 14.8 L Mcmullen % (Auto) 5.3 Eos % (Auto) 0.4 L Baso % (Auto) 1.1 Neut # (Auto) 7100 H Lymph # (Auto) 1300 Mcmullen # (Auto) 500 Eos # (Auto) 0 Baso # (Auto) 100 Sodium 132 L Potassium 3.8 Chloride 102 Carbon Dioxide 24 BUN 17 Creatinine 1.08 H Estimated GFR 49.3 L BUN/Creatinine Ratio 15.7 Glucose 116 H Calcium 9.8 Total Bilirubin 0.4 AST 36 ALT 22 Alkaline Phosphatase 66 Total Protein 7.2 Albumin 4.3 Globulin 2.9 Albumin/Globulin Ratio 1.5
--- NOTE | 2019-12-23 15:19 | OT.IP.EVAL ---
Current Diagnoses Unspecified dislocation of right hip, initial encounter (12/23/19) Surgery Performed Operation Date: 12/23/19 10:15 Actual Procedures p Closed Reduction Dislocated Hip(Right) - Derick Rainey MD Past Medical History (Last Reviewed 12/23/19 @ 06:52 by Derick Rainey MD) AAA (abdominal aortic aneurysm) (Acute ~2014) Acid reflux (Acute) Anxiety (Acute) CKD (chronic kidney disease), stage II (Acute) Confusion (Acute) Deviated septum (Acute) Easy bruisability (Acute) Former smoker (Acute) HLD (hyperlipidemia) (Acute) HTN (hypertension) (Acute) PAF (paroxysmal atrial fibrillation) (Acute) Surgical History (Last Reviewed 12/23/19 @ 06:52 by Derick Rainey MD) History of arthroplasty of right hip (Acute) History of bilateral tubal ligation (Acute) History of open reduction and internal fixation (ORIF) procedure (Acute 01/28/15) History of 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 joint (Acute) Hx of bilateral cataract extraction (Acute) Hx of endovascular stent graft for abdominal aortic aneurysm (Acute ~2014) S/p bilateral blepharoplasty (Acute) Occupational Therapy Inpatient Evaluation/Re-Eval M1 PT/OT-IP Prior Functional Status Start: 12/23/19 18:04 Freq: NEEDED Status: Active Protocol: Document 12/23/19 15:19 [facility] (Rec: 12/23/19 18:23 [facility] [id number]) Medical Review Prior Functional Status Medical History Reviewed Yes Communication able to make needs known Mobility and Gait pt stated that she is modified independent with all mobilities and ambulation using 4WW but occasionally uses a SPC Activities of Daily Living and IADL's Pt states prior able to use LB dressing equipment to be able to do dressing needs on her own. Social History Household Members none Living Arrangements House Number of Floors (Floors) One Floor Number of Stairs To Enter/Railing? 1 step to enter Home Environment Standard Height Toilet,Walk in Shower Home Equipment Four Wheel Walker,Straight Cane,Hand Held Shower,Long Handled Shoe Horn,Tool Maker,Sock Aid,Grab Bars In Shower Additional Social History Comment pt's daughter Daniella stated that she can assist pt for a few days but cannot stay with her M2 OT-IP Current Condition Start: 12/23/19 18:04 Freq: Status: Active Protocol: Document 12/23/19 15:19 [facility] (Rec: 12/23/19 18:23 [facility] [id number]) Occupational Therapy Current Condition Current Condition Evaluation Date 12/23/19 Treatment Diagnosis R ARLYN dislocation S/P closed reduction, decreased mobility and self care Diagnosis Onset Date 12/23/19 Post Operative Precautions Posterior Hip Precautions No Hip Flexion > 90 degrees,No Hip Internal Rotation,No Hip Adduction Weight Bearing Status Weight Bearing Status Weight Bear as Tolerated M3 OT- IP Subjective and Pain Start: 12/23/19 18:04 Freq: Status: Active Protocol: Document 12/23/19 15:19 [facility] (Rec: 12/23/19 18:23 [facility] [id number]) OT- Subjective Occupational Therapy Visit Type Type Initial Evaluation Visit Start Time 15:19 Visit Stop Time 16:08 Total Visit Minutes 49 Occupational Therapy Visit Comments Patient Comments Pt's daughter present for OT eval and PT also present for part of the session. Patient/Caregiver Goals To go home. OT Pain Assessment Pain When Pain Assessed At Rest Pain Present Pain Present Denied Pain M4 OT- IP ADL's Start: 12/23/19 18:04 Freq: Status: Active Protocol: Document 12/23/19 15:19 [facility] (Rec: 12/23/19 18:23 [facility] [id number]) OT [id number] Comments OT Self-Feeding Comments Not at meal time. OT ADL-Grooming General Evaluation Grooming Ability Standby Assistance Areas Needing Assistance Retrieving/Set-up of Grooming Items Comments OT Grooming Comments SBA for set-up, CGA while standing at the sink for needs with FWW. OT ADL-Dressing General Eval Lower Body Dressing Ability Maximum Assistance Areas Needing Assistance Socks Comments OT Dressing Comments Pt will need to use LB dressing equipment for needs. Pt states at home forgot to use her sock aid and was leaning forwards to jacek her sock and then her hip dislocated. OT ADL-Toileting General Evaluation Toileting Ability Standby Assistance,Minimal Assistance Areas Needing Assistance Manage Clothing Devices Toileting Assistive Devices Commode,Grab Bars Comments OT Toileting Comments Pt will benefit from BSC or raised toilet seat with arm rest to help increase ease to sit down to the toilet and keep pt from bending over too far. Pt needing cues to lean back while doing pericare needs after urination and cued to stand to wipe if having a bowel movement. Also educated best to have all supplies there and within reach. OT ADL-Bathing Comments OT Bathing Comments Not at this time, pt would benefit from an adjustable shower chair with back and assist for fear of pt bending over too far while bathing. M5 OT- IP IADL's Start: 12/23/19 18:04 Freq: Status: Active Protocol: Document 12/23/19 15:19 [facility] (Rec: 12/23/19 18:23 [facility] [id number]) OT-Instrumental Activities of Daily Living Home Safety Awareness Awareness of Need for Assistance at Home Decreased Awareness Home Safety Comments Pt getting frustrated and having difficulty to incorporate her hip precautions. In addition while pt in sitting, her RLE tends to roll inwards. At this time due to her forgetfulness and decreased safety awareness, best for pt to have someone assist her at home 05/02, however may not need assist for sleeping hours unless having to get up to use the bathroom in the middle of the night. Medication Management Medication Management Comments Pt's daughter sets up her medications. Money Management Money Management Comments Pt pays her own bills. M6 OT- IP Functional Cognition Start: 12/23/19 18:04 Freq: Status: Active Protocol: Document 12/23/19 15:19 [facility] (Rec: 12/23/19 18:23 [facility] [id number]) Cognitive Factors Limiting Selfcare Function Cognitive Ability Level of Alertness Alert Patient Orientation Name,Place,Situation Attention Span Ability Capable of Focused Attention, Capable of Sustained Attention Ability to Follow Commands Able to Follow One Step Commands Memory Description Short Term Impaired Safety Awareness Decreased Ability to Apply Precautions,Underestimates Need for Assistance Cognitive Comments Cognitive Assessment Comments Pt needing continuous cues to incorporate her hip precautions for all needs. 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 Pt will need supervision at home to help remind her of her hip precautions and assist as needed for ADL and mobility needs. M7 OT- IP Mobility and Balance Start: 12/23/19 18:04 Freq: Status: Active Protocol: Document 12/23/19 15:19 [facility] (Rec: 12/23/19 18:23 [facility] [id number]) OT- Bed Mobility Assessment Rolling Type of Rolling Roll to Right Level of Assistance Standby Assistance Supine to Sit Supine to Sit Assist Standby Assistance OT-Transfer Assessment Sit to and From Stand Sit to and from Stand Contact Guard Assistance, Minimal Assistance Transfers Transfer Ability Contact Guard Assistance Technique Transfer Destination Bed,Chair,Toilet Transfer Technique Stand Step Pivot Devices Transfer Assistive Devices Gait Belt,Front Wheeled Walker Comments Mobility Comments VC to be mindful of her hip precautions. OT- Balance Assessment Sitting Balance and Reactions Static Sitting Balance Ability Good Dynamic Sitting Balance Ability Good Standing Balance and Reactions Static Standing Balance Ability Fair M8 OT- IP Objective Assessments Start: 12/23/19 18:04 Freq: Status: Active Protocol: Document 12/23/19 15:19 [facility] (Rec: 12/23/19 18:23 [facility] [id number]) OT Gross Range of Motion Upper Extremity Range of Motion Assessment Within Functional Limits OT Strength Upper Extremity Strength Assessment Within Functional Limits OT-Muscle Tone Assessment Muscle Tone WNL Yes M9 OT- IP Assessment and Plan Start: 12/23/19 18:04 Freq: Status: Active Protocol: Document 12/23/19 15:19 [facility] (Rec: 12/23/19 18:23 [facility] [id number]) OT Summary Assessment and Plan Potential Rehabilitation Potential Good Analytic Complexity at Evaluation Low Summary OT Impairments Balance,Functional Cognition, Functional Mobility,Dressing, Toileting,Bathing,Toilet Transfers,Shower Transfers, Activity Tolerance Progress Towards Goals Progressing Toward Goals,Slow Progress due to Cognition Assessment Summary Pt low complexity and main barrier are decreased ability to follow and incorporate hip precautions. Pt's daughter looking to stay a few days initially to assist pt. Pt will benefit from daughter to stay with her and provide cues for her hip precautions. Pt also needing CGA for mobility needs and some assist for ADL' s at this time. Goals Grooming Goal Independent Dressing Goal Independent Toileting Goal Independent Bathing Goal Standby Assistance Toilet Transfer Goal Independent Shower Transfer Goal Standby Assistance Patient/Caregiver Education Goal Demonstrate Post-Op Precautions,Caregiver Independent Assisting Patient Days to Meet Goals 5 Frequency of Treatment Frequency Of Treatment Once a Day Treatment Plan OT Treatment Plan ADL Training,Functional Cognition Training,Functional Mobility,Patient/Family Education,Discharge Planning Other Treatment Recommendations and Next Shower and practice use of LB Treatment Focus dressing equipment. Discharge Recommendations OT Discharge Recommendations Home with 24/7 Assist,Home Health Home Equipment Needs Shower chair, BSC /RTS with arms, FWW Transportation Needs at Discharge Private Vehicle
--- NOTE | 2019-12-23 15:20 | PT.IIE ---
Current Diagnoses Unspecified dislocation of right hip, initial encounter (12/23/19) Surgery Performed Operation Date: 12/23/19 10:15 Actual Procedures p Closed Reduction Dislocated Hip(Right) - Derick Rainey MD Surgical History (Last Reviewed 12/23/19 @ 06:52 by Derick Rainey MD) History of arthroplasty of right hip (Acute) History of bilateral tubal ligation (Acute) History of open reduction and internal fixation (ORIF) procedure (Acute 01/28/15) History of 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 joint (Acute) Hx of bilateral cataract extraction (Acute) Hx of endovascular stent graft for abdominal aortic aneurysm (Acute ~2014) S/p bilateral blepharoplasty (Acute) Medical History (Last Reviewed 12/23/19 @ 06:52 by Derick Rainey MD) AAA (abdominal aortic aneurysm) (Acute ~2014) Acid reflux (Acute) Anxiety (Acute) CKD (chronic kidney disease), stage II (Acute) Confusion (Acute) Deviated septum (Acute) Easy bruisability (Acute) Former smoker (Acute) HLD (hyperlipidemia) (Acute) HTN (hypertension) (Acute) PAF (paroxysmal atrial fibrillation) (Acute) Physical Therapy Inpatient Evaluation/Re-Eval M1 PT/OT-IP Prior Functional Status Start: 12/23/19 09:01 Freq: NEEDED Status: Active Protocol: Document 12/23/19 15:20 AB (Rec: 12/23/19 16:38 AB [id number]) Medical Review Prior Functional Status Medical History Reviewed Yes Communication able to make needs known Mobility and Gait pt stated that she is modified independent with all mobilities and ambulation using 4WW but occasionally uses a SPC Social History Household Members none Living Arrangements House Number of Floors (Floors) One Floor Number of Stairs To Enter/Railing? 1 step to enter Home Environment Standard Height Toilet,Walk in Shower Home Equipment Four Wheel Walker,Straight Cane,Hand Held Shower,Grab Bars In Shower Additional Social History Comment pt's daughter Daniella stated that she can assist pt for a few days but cannot stay with her M2 PT-IP Current Condition Start: 12/23/19 09:01 Freq: NEEDED Status: Active Protocol: Document 12/23/19 15:20 AB (Rec: 12/23/19 16:38 AB [id number]) Physical Therapy Current Condition Current Condition Evaluation Date 12/23/19 Treatment Diagnosis R ARLYN dislocation s/p closed reduction; difficulty in walking Onset Date 12/23/19 Precautions Posterior Hip Precautions No Hip Flexion > 90 degrees,No Hip Internal Rotation,No Hip Adduction Weight Bearing Status Weight Bearing Status Weight Bear as Tolerated Allowed Weight Bearing Amount (enter % RLE WBAT or #) (%) M3 PT-IP Subjective Start: 12/23/19 09:01 Freq: NEEDED Status: Active Protocol: Document 12/23/19 15:20 AB (Rec: 12/23/19 16:38 AB [id number]) Subjective Physical Therapy Visit Type Type Initial Evaluation Visit Start Time 15:20 Visit Stop Time 15:55 Total Visit Minutes 35 Number of EQUIPMENT SERVICES ASSOCIATE Visits 0 Physical Therapy Visit Comments Patient Comments pt initially refused PT and stated that she is tired. Nurse came in and requested pt to use the toilet. pt then ageed to get up to use the toilet. daughter in room with pt. Therapy Pain Assessment Pain Present Pain Present Denied Pain M4 PT-IP Mobility and Gait Start: 12/23/19 09:01 Freq: NEEDED Status: Active Protocol: Document 12/23/19 15:20 AB (Rec: 12/23/19 16:38 [id number]) PT-Bed Mobility Assessment Supine to Sit Supine to Sit Standby Assistance Scooting Scooting to Edge of Bed Standby Assistance PT-Transfer Assessment Sit to and From Stand Sit to and from Stand Contact Guard Assistance Equipment Transfer Assistive Device Gait Belt,Front Wheeled Walker Orthotic/Prosthetic Devices or Brace: No Transfers Transfer Destination Toilet Transfer Technique ambulated using FWW Transfer Ability Level of Assist Contact Guard Assistance, Minimal Assistance,1 Person Assistance,Use of Upper Extremities Comments Mobility Comments reviewed hip precautions with pt and pt unable to recall. pt becomes frustrated and confused. pt required instructions with all tasks and cues to maintain hip precautions. pt completed supine to sit SBA with cues. pt was able to sit on EOB SBA. completed sit to stand CGA to min A and cues. pt's RLE tends to interanally rotate and pt cues and assisted to maintain hip precaution. pt ambulated ~ 10 ft to the toilet using FWW CGA to min A. OT took over. pt ambulated from the toilet towards the sink using FWW CGA and cues. pt was able to maintain standing balance using FWW for support CGA while completing handwashing. OT took over. left pt with OT. talked to pt's daughter and stated that pt's confusion and memory issues has slowly been getting worse but better when she is at home. stated that she can assist pt for a few days but she has her own family to take care off. stated that pt has refused going into another place and also refused for outside assistance before. Gait Assessment Gait Gait Assistance Required: Contact Guard Assist,Minimum Assistance,1 Person Assist Distance (Feet) 10 Able to Maintain Weight Bearing Status Yes During Gait Assistive Devices Assistive Device Gait Belt,Front Wheeled Walker Orthotic/Prosthetic Devices or Brace: No Gait Deviations General Gait Pattern Antalgic,Decreased Stride Length,Decreased Feet Clearance Factors Limiting Gait Function Factors Limiting Gait Function Poor Balance,Poor Safety Awareness PT-Balance Assessment Sitting Balance and Reactions Static Sitting Balance Ability Good Dynamic Sitting Balance Ability Good Standing Balance and Reactions Static Standing Balance Ability Fair Dynamic Standing Balance Ability Fair Device Used FWW M5 PT-IP Objective Assessments Start: 12/23/19 09:01 Freq: NEEDED Status: Active Protocol: Document 12/23/19 15:20 AB (Rec: 12/23/19 16:38 [id number]) Orientation Orientation/Cognition Level of Alertness Alert Orientation Name,Place,Situation Memory Description Short Term Impaired Comments with confusion and memory issues Gross Range of Motion Lower Extremity ROM Assessment Within Functional Limits Strength Lower Extremity Strength Assessment Within Functional Limits Coordination Assessment Gross Coordination Gross Coordination Impaired Sensation Assessment Sensation Gross Sensation WNL Muscle Tone Muscle Tone WNL Yes M6 PT-IP Treatment Start: 12/23/19 09:01 Freq: NEEDED Status: Active Protocol: Document 12/23/19 15:20 AB (Rec: 12/23/19 16:38 AB [id number]) Physical Therapy Treatment Education Education Provided Precautions,Weight Bearing Status,Post-Op Packet,Safety M7 PT-IP Assessment and Plan Start: 12/23/19 09:01 Freq: NEEDED Status: Active Protocol: Document 12/23/19 15:20 AB (Rec: 12/23/19 16:38 [id number]) PT Summary Assessment and Plan Potential Rehabilitation Potential Good Status of Condition at Evaluation Stable Summary Impairments Balance,Cognition,Bed Mobility ,Transfers,Gait,Activity Tolerance Assessment Summary pt requiring CGA to min A with mobility but requires cues to maintain hip precautions with all tasks. pt stated that she does not need assistance at home but pt is unable to recall her precautions and maintain during mobility and requires max cues with all tasks. informed daughter that pt will need assistance at home and will need home health PT. will continue to assess progress. Goals Bed Mobility Goal Independent Transfer Goal Independent,Four Wheeled Walker Gait Goal Independent,Four Wheel Walker Gait Distance 200 Other Goals up/down 1 step using 4WW SBA Days to Meet Goals 5 Frequency of Treatment Frequency Of Treatment Twice a Day Treatment Plan Physical Therapy Treatment Plan Bed Mobility Training,Transfer Training,Gait Training, Therapeutic Exercise,Balance Retraining,Post Op Education, Discharge Planning,Hot or Cold Pack,Neuromuscular Re-ed, Coordination Retraining,Manual Therapy Other Recommendations and Next Treatment ambulation, stair climbing Focus Recommendations To Nursing Amount of Assist Needed 1 Person Assist Discharge Recommendations PT Discharge Recommendations Home with 05/02 Assist,Home Health Transportation Needs at Discharge Private Vehicle,Wheelchair/ Cabulance
[2019-12-23] MEDS: diphenhydrAMINE 25 MG TABLET PO (18:07)
[2019-12-23] MEDS: DOCUSATE 100 MG CAPSULE PO (20:01)
[2019-12-24 00:20] VITALS: O2SAT 96
[2019-12-24] MEDS: SODIUM CHLORIDE 0.9% 1,000 ML 100 ML IV (00:57)
[2019-12-24 03:00] VITALS: BP 133/67; PULSE 78; RESP 15; TEMP 36.8; O2SAT 94
[2019-12-24 04:00] VITALS: O2SAT 94
--- NOTE | 2019-12-24 06:51 | PC.NURSE ---
Woke up confused this morning, states I thought I'm home & I'm trying to go to the [facility]. Re-oriented to time, place & events & she replied now I remember, I fell & dislocated my hip. Denies any pain all night rt. hip swollen, ice pack applied. Will cont. POC & monitor.
[2019-12-24 07:25] LABS: Hemoglobin 9.8 g/dL (12.0-16.0)
[2019-12-24 08:12] VITALS: BP 139/70; PULSE 97; RESP 16; TEMP 36.6; O2SAT 97
[2019-12-24 08:30] VITALS: O2SAT 97
[2019-12-24] MEDS: DOCUSATE 100 MG CAPSULE PO (08:34)
[2019-12-24] MEDS: SODIUM CHLORIDE 0.9% FLUSH 10 ML IV (08:34)
--- NOTE | 2019-12-24 09:13 | OT.IP.TRT ---
Current Diagnoses Unspecified dislocation of right hip, initial encounter (12/23/19) Surgery Performed Operation Date: 12/23/19 10:15 Actual Procedures p Closed Reduction Dislocated Hip(Right) - Derick Rainey MD Occupational Therapy Treatment Note M2 OT-IP Current Condition Start: 12/23/19 18:04 Freq: Status: Active Protocol: Document 12/23/19 15:19 [facility] (Rec: 12/23/19 18:23 [facility] [id number]) Occupational Therapy Current Condition Current Condition Evaluation Date 12/23/19 Treatment Diagnosis R ARLYN dislocation S/P closed reduction, decreased mobility and self care Diagnosis Onset Date 12/23/19 Post Operative Precautions Posterior Hip Precautions No Hip Flexion > 90 degrees,No Hip Internal Rotation,No Hip Adduction Weight Bearing Status Weight Bearing Status Weight Bear as Tolerated M3 OT- IP Subjective and Pain Start: 12/23/19 18:04 Freq: Status: Active Protocol: Document 12/24/19 08:38 [facility] (Rec: 12/24/19 12:36 [facility] [id number]) OT- Subjective Occupational Therapy Visit Type Type Treatment Note Visit Start Time 08:35 Visit Stop Time 09:13 Total Visit Minutes 38 Occupational Therapy Visit Comments Patient Comments Pt not wanting to shower but agreed to use the bathroom and wash up at the sink. Pt a bit confuse and needing to be re-orientated to her status and hip precautions. Patient/Caregiver Goals To go home. OT Pain Assessment Pain When Pain Assessed At Rest Pain Present Pain Present Denied Pain M4 OT- IP ADL's Start: 12/23/19 18:04 Freq: Status: Active Protocol: Document 12/24/19 08:38 [facility] (Rec: 12/24/19 12:36 [facility] [id number]) OT ADL-Grooming General Evaluation Grooming Ability Independent OT ADL-Dressing Comments OT Dressing Comments Pt will need to use of LB dressing equipment for all LB dressing needs. Pt states able to cross her LLE to put on her socks, however as pt is a bit confused would be best for pt to just use sock aid for both feet. This would ensure to follow hip precautions in case pt gets confused dressing her left foot from her right foot. OT ADL-Toileting General Evaluation Toileting Ability Standby Assistance Devices Toileting Assistive Devices Commode Comments OT Toileting Comments BSA for toileting needs, pt able to recall to stand from hygiene needs at this time. Suggested to have items close by for toileting needs. OT ADL-Bathing Comments OT Bathing Comments Pt refusing. M5 OT- IP IADL's Start: 12/23/19 18:04 Freq: Status: Active Protocol: Document 12/24/19 08:38 [facility] (Rec: 12/24/19 12:36 [facility] [id number]) OT-Instrumental Activities of Daily Living Home Safety Awareness Home Safety Comments Pt's daughter will have to assist for all IADl needs and safety for ADl's. M6 OT- IP Functional Cognition Start: 12/23/19 18:04 Freq: Status: Active Protocol: Document 12/24/19 08:38 [facility] (Rec: 12/24/19 12:36 [facility] [id number]) Cognitive Factors Limiting Selfcare Function Cognitive Ability Level of Alertness Alert,Confusional State Patient Orientation Name,Place,Situation Attention Span Ability Capable of Focused Attention, Capable of Sustained Attention Safety Awareness Decreased Ability to Apply Precautions,Underestimates Need for Assistance Cognitive Comments Cognitive Assessment Comments Pt getting frustrated and confused and not remembering that she is in the hospital and what happened to her. Pt's daughter has good understanding how to assist her mother and will be staying with her at home. M7 OT- IP Mobility and Balance Start: 12/23/19 18:04 Freq: Status: Active Protocol: Document 12/24/19 08:38 [facility] (Rec: 12/24/19 12:36 [facility] [id number]) OT- Bed Mobility Assessment Supine to Sit Supine to Sit Assist Standby Assistance OT-Transfer Assessment Sit to and From Stand Sit to and from Stand Standby Assistance Transfers Transfer Ability Standby Assistance Technique Transfer Destination Bed,Chair,Toilet Transfer Technique Stand Step Pivot Devices Transfer Assistive Devices Gait Belt,Front Wheeled Walker Comments Mobility Comments VC to sliding her RLE forwards before standing and sitting down. 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 OT- Balance Assessment Sitting Balance and Reactions Static Sitting Balance Ability Normal Dynamic Sitting Balance Ability Good Standing Balance and Reactions Static Standing Balance Ability Good Dynamic Standing Balance Ability Fair M8 OT- IP Objective Assessments Start: 12/23/19 18:04 Freq: Status: Active Protocol: Document 12/23/19 15:19 [facility] (Rec: 12/23/19 18:23 [facility] [id number]) OT Gross Range of Motion Upper Extremity Range of Motion Assessment Within Functional Limits OT Strength Upper Extremity Strength Assessment Within Functional Limits OT-Muscle Tone Assessment Muscle Tone WNL Yes M9 OT- IP Assessment and Plan Start: 12/23/19 18:04 Freq: Status: Active Protocol: Document 12/24/19 08:38 [facility] (Rec: 12/24/19 12:36 [facility] [id number]) OT Summary Assessment and Plan Potential Rehabilitation Potential Good Analytic Complexity at Evaluation Low Summary OT Impairments Functional Cognition,Dressing, Toileting,Bathing,Shower Transfers Progress Towards Goals Progressing Toward Goals,Slow Progress due to Cognition Assessment Summary Pt more confused and frustrated that she does not remember what happened to her. Pt still needing vc at all times to incorporate her hip precautions. Pt' daughter to stay with her to assist with all her needs. Goals Days to Meet Goals 1 Frequency of Treatment Frequency Of Treatment Once a Day Treatment Plan OT Treatment Plan ADL Training,Functional Cognition Training,Functional Mobility,Patient/Family Education,Discharge Planning Other Treatment Recommendations and Next Shower and practice use of LB Treatment Focus dressing equipment. Discharge Recommendations OT Discharge Recommendations Home with / Assist,Home Health Home Equipment Needs Shower chair, BSC /RTS with arms, FWW Transportation Needs at Discharge Private Vehicle
--- NOTE | 2019-12-24 10:28 | PM.DS.1 ---
History of Present Illness History of Present Illness Date Patient Seen: 12/24/19 Time Patient Seen: 10:28 Chief complaint: Total Right Hip Dislocation Narrative: As per EMILY George: Ms. Keiry Mayes is a 74-year-old female patient with a history hypertension, paroxysmal atrial fibrillation, abdominal aortic aneurysm without rupture, chronic kidney disease stage 2, hyperlipidemia, osteoarthritis, anxiety depression and glaucoma who presents to the ER at [place] after bending over in her recliner to put a sock on and dislocating her right total hip. The patient presented to the ER at which time they attempted close reduction with procedural sedation with ketamine and propofol x2 without successful reduction. Patient had undergone a revision of her right total hip acetabular component on September [address] Wasserman. The patient reports no complications following the procedure and had not done extensive physical therapy related to the COVID-19 pandemic. The ER physician contacted Dr. Rainey, orthopedics in consultation who agreed to accept the patient and recommended transfer to [facility]. Report is received from Dr. Whelan at [facility] in agreed to accept the patient as a direct admit to the acute care floor. In the ER at [facility] in [place] the patient had a blood pressure 141/73, temperature 97.9?, heart rate of 66, respiratory rate of 24. Patient was transported [facility] without complication. Upon admission to the acute care floor the patient is found to have a temperature 99.7?, blood pressure 130/70, heart rate 75, respirations of 18 saturating 100% air. Patient she is complaint is right hip pain in the low posterior and lateral right hip with any movement. The patient reports no recent illness, fevers or chills, COVID-19 exposures. She denies headache or visual changes nasal congestion or sore throat. She denies complaints of chest pain or palpitations, she shortness of breath cough or wheezing. She has no abdominal pain, heartburn, nausea vomiting. She denies constipation or diarrhea and has no difficulty urinating. Discharge Providers Provider Date of admission: 12/23/19 01:52 Discharge Date: 12/24/19 Primary care physician: Messi Miranda MD Consults: 12/23/19 02:02 Consult to Discharge Planning Routine Comment: Consult to Occupational Therapy Evaluate & Treat Comment: Physician Instructions: Evaluate and treat Consult to Orthopedic Surgery Routine Comment: Consulting Provider: Derick Rainey Reason for consultation: Dislocated right total hip prosthesis Has provider been notified: Yes Consult to Physical Therapy Evaluate & Treat Comment: Physician Instructions: Evaluate and Treat 12/23/19 12:14 Consult to Discharge Planning Routine Comment: Consult to Physical Therapy Evaluate & Treat Comment: strict posterior hip precautions Physician Instructions: s/p closed reduction right total hip arthroplasty Consult to Respiratory Therapy Evaluate & Treat Comment: Physician Instructions: Evaluate and treat Discharge provider: Hermes Ye DO Summary Hospital Course Discharge Diagnosis: Please see hospital course by problem list noted below Hospital Course: This is 74-year-old female who presented to to [facility] ER in [place] with a dislocated right total hip. Attempted close reduction failed in that emergency room and the patient was transferred [facility] for definitive treatment. She ultimately underwent closed reduction in the operating room with successful repositioning. 1. 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 Wasserman. -the patient is bending over in a recliner putting on a sock 1 or hip dislocated. There was no fall or trauma associated. Attempted closed reduction of the hip at [facility] was unsuccessful. -, orthopedics, was consulted and patient underwent closed reduction in the operating room on 12/23/2019. She did well with physical therapy afterwards and was discharged home. 2. Essential hypertension, present on admission, stable -patient's blood pressures were unremarkable, patient can continue home medications without any changes. 3. Paroxysmal atrial fibrillation, chronic, in sinus rhythm, stable. -no complaints of chest pain or palpitations. -will continue home regimen of metoprolol 25 mg daily. 4. Chronic kidney disease stage 2, chronic, presumed stable. 5. Abdominal aortic aneurysm without rupture, present on admission, stable. -the patient underwent stenting of the aneurysm in 2007. -the patient has been under continuing surveillance with no complications, no reports of vascular claudication abdominal or back pain. Exam Vital Signs (past 8 hours): - 12/24/19 03:00 12/24/19 04:00 12/24/19 08:12 Temperature 98.2 F 97.9 F Pulse Rate 78 97 H Respiratory Rate 15 16 Blood Pressure 133/67 139/70 Pulse Oximetry 94 94 97 12/24/19 08:30 Temperature Pulse Rate Respiratory Rate Blood Pressure Pulse Oximetry 97 Fraction of Inspired Oxygen 2 Oxygen Delivery Method Room Air Oxygen Flow Rate 0 Narrative Exam Narrative: GENERAL APPEARANCE: Well developed, well nourished, in no acute distress. Ambulating with walker in room with physical therapy. SKIN: Inspection of the skin reveals no rashes, ulcerations or petechiae. CHEST: Normal AP diameter and normal contour without any kyphoscoliosis. LUNGS: Auscultation of the lungs revealed no wheezes, rhonchi, or rales. CARDIOVASCULAR: There was a regular rate and rhythm without any murmurs, gallops, rubs. Peripheral pulses were 2+ and symmetric. ABDOMEN: Soft and nontender with normal bowel sounds. No ascites was noted. MUSCULOSKELETAL: There was no tenderness or effusions noted. Muscle strength and tone were normal. EXTREMITIES: No cyanosis, clubbing or edema. NEUROLOGIC: Alert and oriented x 3. Normal affect.Strength is +5/5 in the Upper Extremities and Lower Extremities Bilaterally. Sensation to touch was normal. Objective Labs Result Diagrams: 12/24/19 06:50 12/23/19 02:15 Labs: Laboratory Results - last 24 hr 12/24/19 06:50 Hgb 9.8 L Hct 29.0 L Discharge Plan Discharge Plan Patient Disposition: Home Discharge comment: You were admitted to the hospital after a dislocation of your right hip. You went to the operating room to fix the dislocation. You did well with PT after and are safe for discharge home. Discharge orders & Medications Prescriptions: Continued bupropion HCl 150 mg Tablet Sustained-Release 12 Hr 150 mg PO BID RF: 0 lisinopril-hydrochlorothiazide 20-12.5 mg Tablet 1 tab PO DAILY RF: 0 amlodipine 10 mg Tablet 10 mg PO BEDTIME RF: 0 loratadine [Claritin] 10 mg Tablet 10 mg PO DAILY PRN (Reason: Seasonal allergies) RF: 0 rosuvastatin 10 mg Tablet 10 mg PO DAILY RF: 0 metoprolol tartrate 25 mg Tablet 25 mg PO BID RF: 0 aspirin 81 mg Tablet,Delayed Release (Dr/Ec) 81 mg PO BID Qty: 30 RF: 0 ascorbic acid (vitamin C) [Vitamin C] 500 mg Tablet 500 mg PO BID Qty: 30 RF: 0 ferrous sulfate 325 mg (65 mg iron) Tablet 325 mg PO BIDWM Qty: 30 RF: 0 ibuprofen 400 mg Tablet 400 mg PO Q4HR Qty: 30 RF: 0 docusate sodium [DOK] 100 mg Capsule 100 mg PO BID Qty: 30 RF: 0 acetaminophen [Tylenol Extra Strength] 500 mg tablet 500 mg PO QID PRN (Reason: pain) Qty: 30 RF: 0 tramadol 50 mg tablet 50 mg PO BID PRN (Reason: pain) Qty: 10 RF: 0 Follow up/Referrals: Messi Miranda MD [Primary Care Provider] - Discharge Health Status Health Concerns: R hip dislocation Diet/Activity/Treatments Diet: Diet as Tolerated Activity: As tolerated, abduction pillow while resting and posterior hip precautions. Visit Report/Discharge Packet Instructions: DI for Hip Dislocation -- Adult, How to Prevent Falls Visit Report Forms: Patient Portal/API, Stroke Signs & Symptoms Discharge Data Primary Care Provider: Messi Miranda Attending Provider: Hermes Li Admit Date/Time: 12/23/19 01:52 Discharges patient from system. Discharge Date/Time: 12/24/19 11:54
--- NOTE | 2019-12-24 10:32 | PT.IPTN ---
Current Diagnoses Unspecified dislocation of right hip, initial encounter (12/23/19) Surgery Performed Operation Date: 12/23/19 10:15 Actual Procedures p Closed Reduction Dislocated Hip(Right) - Derick Rainey MD Physical Therapy Treatment Note M2 PT-IP Current Condition Start: 12/23/19 09:01 Freq: NEEDED Status: Discharge Protocol: Document 12/23/19 15:20 AB (Rec: 12/23/19 16:38 AB [id number]) Physical Therapy Current Condition Current Condition Evaluation Date 12/23/19 Treatment Diagnosis R ARLYN dislocation s/p closed reduction; difficulty in walking Onset Date 12/23/19 Precautions Posterior Hip Precautions No Hip Flexion > 90 degrees,No Hip Internal Rotation,No Hip Adduction Weight Bearing Status Weight Bearing Status Weight Bear as Tolerated Allowed Weight Bearing Amount (enter % RLE WBAT or #) (%) M3 PT-IP Subjective Start: 12/23/19 09:01 Freq: NEEDED Status: Discharge Protocol: Document 12/24/19 10:32 AB (Rec: 12/24/19 14:00 AB [id number]) Subjective Physical Therapy Visit Type Type Treatment Note Visit Start Time 10:32 Visit Stop Time 11:24 Total Visit Minutes 52 Number of FLOUR MIXER HELPER Visits 0 Physical Therapy Visit Comments Patient Comments agreeable to do PT; easily gets anxious and flustered Therapy Pain Assessment Pain When Pain Assessed At Rest Pain Present Pain Present Pain Reported Location R hip Intensity 6 Scale Used Numeric (0 - 10) Pain Management Techniques Modification of Treatment, Timing of Activity with Medications M4 PT-IP Mobility and Gait Start: 12/23/19 09:01 Freq: NEEDED Status: Discharge Protocol: Document 12/24/19 10:32 AB (Rec: 12/24/19 14:00 AB [id number]) PT-Bed Mobility Assessment Supine to Sit Supine to Sit Standby Assistance Sit to Supine Sit to Supine Standby Assistance PT-Transfer Assessment Sit to and From Stand Sit to and from Stand Standby Assistance,1 Person Assistance,Use of Upper Extremities Equipment Transfer Assistive Device Gait Belt,Front Wheeled Walker Orthotic/Prosthetic Devices or Brace: No Transfers Transfer Destination Bed,Chair Transfer Technique Stand Step Pivot Transfer Ability Level of Assist Standby Assistance Comments Mobility Comments reviewed hip precautions with pt and pt unable to recall. pt gets flustered and confuse when educated and stated that she is getting frustrated. educated pt on safety. educated on sit<>stand techniques and pt completed x 5 reps SBA with max cues to maintain hip precautions. required step by step cues for safety. completed step transfer to bed and pt completed supine <>sit SBA and cues. pt ambulated in room using FWW and required SBA. Assess safety with use of 4WW and pt was able to completed SBA and cues. pt's daughter arrived midway of tx session and informed regarding pt's mobility, cues needed. daughter understood and stated that she will stay with pt to assist her and her sister will be coming in from [place] to assist pt. pt agreed to sit up on chair. positioned on chair. call light and table placed within reach. Gait Assessment Gait Gait Assistance Required: Standby Assistance Distance (Feet) 50 Able to Maintain Weight Bearing Status Yes During Gait Assistive Devices Assistive Device Gait Belt,Front Wheeled Walker ,4 Wheeled Walker Gait Deviations General Gait Pattern Antalgic,Decreased Stride Length,Decreased Feet Clearance,Flexed Trunk Factors Limiting Gait Function Factors Limiting Gait Function Decreased Activity Tolerance, Decreased Strength,Difficulty Following Directions,Limited Range of Motion,Pain,Poor Balance,Poor Safety Awareness Comments Gait Comments pls refer to mobility section for details M5 PT-IP Objective Assessments Start: 12/23/19 09:01 Freq: NEEDED Status: Discharge Protocol: Document 12/23/19 15:20 AB (Rec: 12/23/19 16:38 AB [id number]) Orientation Orientation/Cognition Level of Alertness Alert Orientation Name,Place,Situation Memory Description Short Term Impaired Comments with confusion and memory issues Gross Range of Motion Lower Extremity ROM Assessment Within Functional Limits Strength Lower Extremity Strength Assessment Within Functional Limits Coordination Assessment Gross Coordination Gross Coordination Impaired Sensation Assessment Sensation Gross Sensation WNL Muscle Tone Muscle Tone WNL Yes M6 PT-IP Treatment Start: 12/23/19 09:01 Freq: NEEDED Status: Discharge Protocol: Document 12/24/19 10:32 AB (Rec: 12/24/19 14:00 AB [id number]) Physical Therapy Treatment Education Education Provided Precautions,Safety M7 PT-IP Assessment and Plan Start: 12/23/19 09:01 Freq: NEEDED Status: Discharge Protocol: Document 12/24/19 10:32 AB (Rec: 12/24/19 14:00 AB [id number]) PT Summary Assessment and Plan Potential Rehabilitation Potential Good Summary Impairments Pain,ROM,Strength,Balance, Coordination,Sensation,Tone, Cognition,Bed Mobility, Transfers,Gait,Activity Tolerance Progress Towards Goals Slow Progress - Other Assessment Summary pt requiring SBA with mobility but requires max cues with all tasks to maintain hip precautions. pt with memory issues and unable to recall precautions. pt was admitted for ARLYN dislocation. recommending 24/7 assist at home and homehealth PT. daughter plans to stay with pt to assist and pt's other daughter will be coming in out of stated to assist pt as well. pt plans to go home today. Goals Bed Mobility Goal Independent Transfer Goal Independent,Four Wheeled Walker Gait Goal Independent,Four Wheel Walker Gait Distance 200 Other Goals up/down 1 step using 4WW SBA Days to Meet Goals 5 Frequency of Treatment Frequency Of Treatment Twice a Day Treatment Plan Physical Therapy Treatment Plan Bed Mobility Training,Transfer Training,Gait Training, Therapeutic Exercise,Balance Retraining,Post Op Education, Discharge Planning,Hot or Cold Pack,Neuromuscular Re-ed, Coordination Retraining,Manual Therapy Other Recommendations and Next Treatment ambulation, stair climbing Focus Recommendations To Nursing Amount of Assist Needed 1 Person Assist Discharge Recommendations PT Discharge Recommendations Home with 24/7 Assist,Home Health Transportation Needs at Discharge Private Vehicle,Wheelchair/ Cabulance
[2019-12-24] MEDS: diphenhydrAMINE 25 MG TABLET PO (11:43)
--- NOTE | 2019-12-24 11:50 | PC.NURSE ---
Discharge Pt denies pain. Worked with PT and aware of posterior hip precautions. Daughter present for d/c. instructions provided to both of them. Aware to contact PCP for f/u apt. Will contact Dr Wasserman's office regarding questions about hip. PIV removed prior to d/c. Pt took all belongings with her. Left in w/c with DOGGY DAYCARE ACTIVITIES DIRECTOR escort to car with her daughter.
--- NOTE | 2019-12-24 11:52 | CM.DANOTE ---
DCP/Assessment: Reviewed chart. Patient is 74yr old female admitted [facility] with right hip dislocation. PCP listed is Dr. Miranda. Primary payor is 1)[facility]. Met with patient explained CM/SW role. Patient underwent repair of hip dislocation on 12-23-[address] Rainey. Patient seen by therapy and cleared to return home. Order put in by Dr. Ye for patient to discharge home today. Patient reports that she resides alone but that her daughter will be staying with her upon d/c. Patient has second daughter coming from out of town next week to stay for as long as needed. Patient has all needed DME and there are currently no identified d/c planning needs. P: Home today. ALLYSON Cavazos Discharge Planning/Care Management CM Discharge Assessment Start: 12/24/19 11:25 Freq: Status: Active Protocol: Document 12/24/19 11:25 KJS (Rec: 12/24/19 11:52 KJS [id number]) Discharge Planning Assessment Assigned Senior Sales Manager ALLYSON Cavazos Contact Information Gin Ren ([facility]) # Advance Directives? Yes History Provided By Patient,Medical Record Prior Living Arrangements House Household Members none Comment Will be relying on family during recovery. Independent with ADL's No: Total right hip dislocation Is patient alert and oriented? Yes Needs Assistance With Meal Prep,Home Chores / Shopping Caregiver for Another No DME Already Rented / Owned FWW / Walker Barriers to Discharge No Discharge Plan Home Transportation Arrangement Family to provide transport. Referrals Initiated None needed Whiteboard Updated in Patient Room with Yes name and ext. # of Senior Sales Manager Review Status In Process Next Review Type Continued Stay Review
--- NOTE | 2019-12-24 13:32 | CM.DANOTE ---
DCP/continued: Received referral from Dr. Rainey/orthopedics, requesting CM team set up home health for PT/OT/RN/SEARCH DEVELOPER. Spoke with therapy and they confirm that patient would benefit. Attempted to meet with patient but she had already been discharged. Therefore, placed call to patient's residence, spoke with patient's daughter/Daniella. She confirms patient arrived home safely and that patient is in agreement to HH. No agency preference, therefore referral will be given to [facility]. Daughter and patient notified and provided with name/number of agency. F2F completed by Dr. Rainey and order obtained. PERSONAL INJURY LEGAL ASSISTANT asked GUNNAR/Pricilla to coordinate HH with Loren. She is in agreement. P: Home today with late order for HH received. Order obtained and Felicita to finalize. ALLYSON Cavazos
--- NOTE | 2019-12-25 10:01 | CM.DPC ---
DCP cont: Faxed discharge summary to [facility] at fax # [phone]. Fax confirmation scanned in. Pricilla Martínez, Care Medical Social Consultant
== END 2019-12-24 11:54 | disposition home or self-care (01) ==
PROVIDERS: Orthopaedic Surgery Adult Reconstructive Orthopaedic Surgery; Admitting Provider Nurse Practitioner Adult Health; PCP Family Medicine; Referring Provider Nurse Practitioner Adult Health; Visit Provider Nurse Practitioner Adult Health
PROC: (CPT 27266; principal; 2019-12-23 10:15)
DX: T84.020A Dislocation of internal right hip prosthesis, initial encounter (principal); I71.4 Abdominal aortic aneurysm, without rupture; N18.2 Chronic kidney disease, stage 2 (mild); I48.0 Paroxysmal atrial fibrillation; I12.9 Hypertensive chronic kidney disease with stage 1 through stage 4 chronic kidney disease, or unspecified chronic kidney disease
CPT/HCPCS: 27266; 36415; 36592; 72170; 73502; 76000; 80053; 85014; 85018; 85025; 94762; 97162; 97165; 97530; 97535; G0378; G0379; J1170; J2250

== ENCOUNTER → 2020-09-09 16:07 | Outpatient (CLI) | payer OTHER, SELFPAY ==
[2019-12-23 02:08] VITALS: BMI 26.3
[2020-09-09 17:11] LABS: Add Manual Diff / Slide Review NO; Basophils Absolute Auto 100 /uL (0-100); Basophils Percent Auto 0.9 % (0-2); Eosinophils Absolute Auto 200 /uL (0-450); Eosinophils Percent Auto 3.2 % (2-4); Hematocrit 35.9 % (36-46); Hemoglobin 11.8 g/dL (12.0-16.0); Lymphocytes Absolute Auto 1600 /uL (1100-4500); Lymphocytes Percent Auto 20.7 % (25-40); Mean Corpuscular HGB Conc 32.9 % (30-36); Mean Corpuscular Volume 88.2 fL (80-100); Monocytes Absolute Auto 500 /uL (0-900); Monocytes Percent Auto 7.1 % (3-14); Neutrophils Absolute Auto 5200 /uL (1500-7000); Neutrophils Percent Auto 68.1 % (50-75); Platelet Count 213 X10^3/uL (150-400); Red Blood Cell Count 4.06 X10^6/uL (4.0-5.2); Red Cell Distribution Width 15.1 % (11.6-14.8); White Blood Cell Count 7.7 X10^3/uL (4.5-11.0)
[2020-09-09 17:13] LABS: Hemoglobin A1C% w Est Avg Glu 5.4 % (4.0-6.0)
[2020-09-09 17:26] LABS: Blood Urea Nitrogen 16 mg/dL (7-17); Calcium 9.9 mg/dL (8.4-10.2); Carbon Dioxide 28 mmol/L (22-32); Chloride 103 mmol/L (98-107); Estimated Glomerular Filt Rate > 60.0 mL/min (>60); Glucose 100 mg/dL (80-110); HEMOLYSIS < 15 (0-50); Potassium 3.4 mmol/L (3.4-5.1); Sodium 137 mmol/L (137-145)
[2020-09-09 17:32] LABS: C-Reactive Protein Quant < 0.5 mg/dL (<1.0)
[2020-09-09 17:51] LABS: Appearance Urine UA CLEAR; Bilirubin Urine UA NEGATIVE (NEGATIVE); Color Urine UA YELLOW; Glucose Urine UA NEGATIVE (Negative); Ketones Urine UA NEGATIVE (NEGATIVE); Leukocyte Esterase Urine UA NEGATIVE (NEGATIVE); Nitrite Urine UA NEGATIVE (Negative); Occult Blood Urine UA TRACE-LYSED (Negative); Protein Urine UA NEGATIVE (Negative); Specific Gravity Urine UA 1.025 (1.000-1.035); Urobilinogen Urine UA 0.2 E.U./dL (0.2)
[2020-09-09 18:19] LABS: Amorphous Sediment Urine 1+; Bacteria Urine Occasional (0-1); Mucus Urine 1+ (Negative); RBC Urine 0-1/HPF (0-5/HPF); Squamous Epithelial Cell Urine 1-5 /HPF (0-5/HPF); WBC Urine 1-5/HPF (0-5/HPF)
[2020-09-09 18:20] LABS: Culture Indicated Urine Cult Not Indicated
[2020-09-09 18:42] LABS: Erythrocyte Sedimentation Rate 18 MM/HR (0-20)
== END ==
PROVIDERS: PCP Family Medicine; Referring Provider Orthopaedic Surgery; Visit Provider Orthopaedic Surgery
DX: Z01.818 Encounter for other preprocedural examination (principal); R73.9 Hyperglycemia, unspecified; Z01.812 Encounter for preprocedural laboratory examination; N39.0 Urinary tract infection, site not specified
CPT/HCPCS: 36415; 80048; 81001; 83036; 85025; 85651; 86140; 93005

== ENCOUNTER → 2020-10-30 11:08 | Outpatient (CLI) | payer OTHER, SELFPAY ==
[2019-12-23 02:08] VITALS: BMI 26.3
[2020-10-30 13:32] LABS: COVID19 -Nasal RAPID Negative (Negative)
== END ==
PROVIDERS: PCP Family Medicine; Visit Provider Physician Assistant
DX: Z20.822 Contact with and (suspected) exposure to COVID-19 (principal)
CPT/HCPCS: 87635

== ENCOUNTER 2020-11-02 06:10 | Day surgery (SDC) | payer OTHER, SELFPAY ==
[2019-12-23 02:08] VITALS: BMI 26.3
[2020-10-25 09:38] VITALS: BMI 24.3
[2020-11-02] VITALS (12 sets, daily range): BP systolic 90–131; BP diastolic 48–82; PULSE 68–89; RESP 11–17; TEMP 35.9–36.9; O2SAT 92–100; BMI 23.8
--- NOTE | 2020-11-02 06:00 | DI.RAD.S_ITS ---
PROCEDURE: XR HIP W PEL IF DONE RT 2V INDICATIONS: right hip revision TECHNIQUE: 2 view(s) of the hip acquired. COMPARISON: [facility], [place], XR HIP W PEL IF DONE RT 2V, 12/23/2019, 10:44. [facility], [place], XR HIP W PEL IF DONE RT 2V, 09/23/2019, 15:58. FINDINGS: Bones: Patient is status post right hip arthroplasty, with hardware components in expected positions. The hip joint appears congruent. The visualized bony structures appear intact. Soft tissues: Overlying postoperative changes are noted. No suspicious soft tissue densities. IMPRESSION: Normal alignment after right total hip arthroplasty. [id number] degenerative changes at the left hip, without trauma, are noted. Dictated by: Guillermo Aldana M.D. on 11/02/2020 at 12:41 Approved by: Guillermo Aldana M.D. on 11/02/2020 at 12:42
[2020-11-02] MEDS: VANCOMYCIN 1,000 MG/200 ML PIGGYBACK 200 MG IV (07:07)
[2020-11-02] MEDS: LACTATED RINGERS 1,000 ML 42 ML IV ×2 (07:07→09:40)
[2020-11-02] MEDS: ONDANSETRON 4 MG/2 ML INJ IV (07:09)
[2020-11-02] MEDS: CELECOXIB 200 MG CAPSULE PO (07:12)
[2020-11-02] MEDS: ACETAMINOPHEN 325 MG TABLET 975 MG PO (07:12)
--- NOTE | 2020-11-02 07:24 | PM.PREOP ---
Pre-operative Note Interval Note History & Physical reviewed/Exam performed by Physician: Yes Changes to H&P: No
[2020-11-02] MEDS: CEFAZOLIN 2 GM/100 ML FROZ.PIGGY IV ×2 (08:10→16:20)
[2020-11-02] MEDS: BUPIVACAINE 0.25% W/ EPI 30 ML VIAL 60 ML INJ (08:37)
[2020-11-02] MEDS: SODIUM CHLORIDE IRRIG SOLUTION 250 ML, EPINEPHrine 1 MG IRR (08:38)
[2020-11-02] MEDS: BUPIVACAINE LIPOSOME 266 MG/20 ML VIAL INJ (08:38)
[2020-11-02] MEDS: TRANEXAMIC ACID 1,000 MG VIAL 1000 MG INJ (08:40)
--- NOTE | 2020-11-02 10:06 | PM.OP.1 ---
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 She had a right hip revision about a year ago for instability unfortunately she went on to have recurrent instability. She does have problems with some baseline dementia and has severe difficulty being compliant and has a history of multiple falls. She has had multiple multiple dislocations and brought back to the operating room for revision hip arthroplasty. Surgeon: Milagro Wasserman Theater Teacher: Everton Hurd Anesthesia Type: General and Spinal Operative Notes Findings: severely deficient hip abductors and gluteal tissue with significant atrophy of her glute and severe tearing and retraction of her hip abductors. Prior to revision fairly normal stability for a posterior approach with no posterior impingement, no tendency towards anterior instability, at 45? she was stable to about 70-80 degrees of internal rotation and at 90? she was stable to about 70? of internal rotation, post revision to a dual mobility there was no tendency towards impingement and she was stable maximal extension external rotation and at 45? to about 90? of internal rotation 90? to about 90? of internal rotation Closure Type: primary Specimen(s): other ( cultures) Prosthetic devices, grafts, tissues, transplants, or devices: Depuy Coleman dual mobility 54 x 47, +8.5 by 28 mm head Estimated Blood Loss (mL): 200 Blood products transfused: none Procedure in detail: The patient was seen in the pre-operative area, where the patient identified the right hip as the operative site and this was marked with my initials. The patient received pre-operative antibiotics and was taken to the operating room and placed on the operative table in the left lateral decubitus position after satisfactory anesthesia. A oil well drilling manager out was performed. The right leg was prepared from the ankle to the iliac crest with ChloroPrep in the usual fashion and draped through sterile drapes. The hip was approached through an approximately 20 cm incision centered over the greater trochanter and curving gently posteriorly as it went proximally. This was carried sharply to the fascia jo ann, which was divided and retracted with a self retaining retractor. deep cultures were sent from fluid and also deep in the acetabulum. There was severe atrophy of the gluteus rico. There was severe tearing of the hip abductors and close to a bare trochanter. The hip stability was meticulously checked. There was no posterior impingement, there was no tendency towards anterior instability, soft tissue had been relatively stripped from the posterolateral aspect of the acetabulum and up along the superior aspect of the cup especially posterior superiorly. The short external rotators were noted to be torn and missing. She actually had surprisingly good stability. at 45? she was stable to about 70-80 degrees of internal rotation, and 90? she was stable to about 70? of internal rotation. The hip was dislocated. Retractors were placed around the femur. The head was removed without difficulty. The neck was then placed superior to the acetabulum in the to the anterior superior area. Polyethylene was removed without difficulty. I placed a trial dual mobility cup in the acetabular shell. Trial reduction with an 0.5 28 mm head and a 47 mm dual mobility liner showed that she had no tendency towards posterior impingement at 45? she was stable to 90? of internal rotation in her is really pretty difficult to dislocate at 90? she was stable to about 90? of internal rotation and in high flexion there was no impingement and good stability even in maximal flexion and adduction with internal rotation to about 80-90 degrees. This was felt to be satisfactory and the appropriate components were opened, and the trials were removed. Marcaine and Exparel were carefully injected. The acetabular liner was impacted into position. A brief Betadine soak was performed. The hip was meticulously irrigated with normal saline. Finally the femoral head was impacted onto the stem. The acetabulum was cleared of all material and the hip relocated one final time. The capsulomuscular flap was then repaired to the greater trochanter using the tag sutures. She had fairly significant atrophy but best possible repair was achieved. The fascia jo ann was closed with Vicryl. The subcutaneous layer was closed with barbed sutures and skin zechariah. An Aquacel Ag dressing was applied and the patient was taken to recovery having tolerated the procedure well. Complications: none Post-operative Condition: stable Disposition: Acute Care Plan for aftercare: The patient will be maintained on a standard total hip replacement protocol with weight bearing as tolerated and posterior hip precautions. The patient will receive Aspirin and sequential compression devices for DVT prophylaxis. The patient will be discharged home when safe for the home environment.
--- NOTE | 2020-11-02 10:18 | PC.NURSE ---
Day shift: Pt on AC unit from PACu at approx 1015. She is awake and denies any pain or nausea. Tolerating SCD's. No sensation in BLE's at this time but good cap refill and warm to the touch. Aquacel rt hip is CDI. Oriented to room and call light. Baseline dementia per Dr Wasserman. Pt will be high fall risk at this time. Call light in reach and bed alarm is on. Door to room is open. Will continue w/ post-op plan of care.
[2020-11-02] MEDS: LACTATED RINGERS 1,000 ML 125 ML IV ×2 (10:38→16:50)
[2020-11-02] MEDS: IBUPROFEN 400 MG TABLET PO ×3 (12:02→22:12)
[2020-11-02] MEDS: diphenhydrAMINE 25 MG TABLET PO ×2 (13:45→22:14)
--- NOTE | 2020-11-02 16:15 | PT.IIE ---
Current Diagnoses Dislocation of internal right hip prosthesis, initial encounter (11/02/20) Surgery Performed Operation Date: 11/02/20 07:45 Actual Procedures p Total Hip Arthroplasty Revision- Acetabular component(Right) - Milagro Wasserman MD Surgical History (Last Updated 10/25/20 @ 10:19 by Mary Ellen Birch RN) History of arthroplasty of right hip (~2010) History of bilateral tubal ligation History of open reduction and internal fixation (ORIF) procedure (01/28/15) History of 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 joint Hx of bilateral cataract extraction Hx of endovascular stent graft for abdominal aortic aneurysm (~2014) Hx of partial mastectomy (2019) S/p bilateral blepharoplasty Medical History (Last Updated 10/25/20 @ 10:22 by Mary Ellen Birch RN) AAA (abdominal aortic aneurysm) (~2014) Acid reflux Anxiety Breast cancer, left breast (2019) CKD (chronic kidney disease), stage II Confusion Dementia Deviated septum Easy bruisability Former smoker HLD (hyperlipidemia) HTN (hypertension) PAF (paroxysmal atrial fibrillation) Physical Therapy Inpatient Evaluation/Re-Eval M1 PT/OT-IP Prior Functional Status Start: 11/02/20 15:27 Freq: NEEDED Status: Active Protocol: Document 11/02/20 16:15 AW (Rec: 11/02/20 16:42 AW [id number]) Medical Review Prior Functional Status Medical History Reviewed Yes Communication Pt presents with forgetfulness and repeats herself frequently. She is able to communicate her needs. Mobility and Gait Pt is mod I for all mobility with use of 4WW. She has history of multiple falls and dislocations of her R ARLYN. Activities of Daily Living and IADL's Pt lives alone and completes all ADL's without assist. Her daughter, Daniella, lives nearby and assists with cleaning, shopping, driving. Social History Household Members none Living Arrangements House Number of Floors (Floors) Two Floors Number of Stairs To Enter/Railing? 1 ANGELITO through the garage with right side grab bar. Pt stays on the entry level management. Home Environment Standard Height Toilet,Walk in Shower Home Equipment Front Wheel Walker,Four Wheel Walker,Straight Cane,Bedside Commode,Raised Toilet Seat w/ Armrests,Shower Seat without Backrest,Hand Held Shower,Long Handled Shoe Horn,Optimization Specialist, Sock Aid,Grab Bars Near Toilet ,Grab Bars In Shower Additional Social History Comment Pt lives alone in [place]. One daughter lives nearby in [place]. Her daughter in law, Pat, lives in [place] and is planning to stay with the pt. There is one other daughter who will also assist as needed. Pt has an abduction brace which she has used following past surgeries. M2 PT-IP Current Condition Start: 11/02/20 15:27 Freq: NEEDED Status: Active Protocol: Document 11/02/20 16:15 AW (Rec: 11/02/20 16:42 AW [id number]) Physical Therapy Current Condition Current Condition Evaluation Date 11/02/20 Treatment Diagnosis R revision ARLYN with posterior approach; difficulty in walking Onset Date 11/02/20 Precautions Posterior Hip Precautions No Hip Flexion > 90 degrees,No Hip Internal Rotation,No Hip Adduction Other Precautions No BP LUE Weight Bearing Status Weight Bearing Status Weight Bear as Tolerated M3 PT-IP Subjective Start: 11/02/20 15:27 Freq: NEEDED Status: Active Protocol: Document 11/02/20 16:15 AW (Rec: 11/02/20 16:42 AW [id number]) Subjective Physical Therapy Visit Type Type Initial Evaluation Visit Start Time 15:39 Visit Stop Time 16:15 Total Visit Minutes 36 Physical Therapy Visit Comments Patient Comments Pt is willing to participate with PT Patient Goals Hopes to return home with family support Therapy Pain Assessment Pain When Pain Assessed During Mobility Pain Present Pain Present Denied Pain M4 PT-IP Mobility and Gait Start: 11/02/20 15:27 Freq: NEEDED Status: Active Protocol: Document 11/02/20 16:15 AW (Rec: 11/02/20 16:42 AW [id number]) PT-Bed Mobility Assessment Supine to Sit Supine to Sit Contact Guard Assistance,1 Person Assistance Scooting Scooting to Edge of Bed Contact Guard Assistance PT-Transfer Assessment Sit to and From Stand Sit to and from Stand Contact Guard Assistance,Use of Upper Extremities Equipment Transfer Assistive Device Gait Belt,Front Wheeled Walker Orthotic/Prosthetic Devices or Brace: No Transfers Transfer Destination Chair,Toilet Transfer Technique Stand Step Pivot Transfer Ability Level of Assist Contact Guard Assistance,1 Person Assistance,Use of Upper Extremities Comments Mobility Comments Pt was lying in bed as PT arrived. With HOB flat, she completed supine to sit toward her left side (as she does at home) requiring verbal cues for hip precautions. She sat EOB with good balance and attempted to stand without AD. PT instructed pt to sit until FWW in place. Pt then stood with FWW CGA. She ambulated to the toilet with FWW CGA and transferred with cues for R foot placement to promote adherence to hip precautions. She then ambulated into the halls, tending to push the walker too far in front of herself. She responded to postural cues briefly but quickly reverted to flexed posture. On return to the room , pt transferred to the chair CGA and cues for upright trunk . Gait Assessment Gait Gait Assistance Required: Standby Assistance,Contact Guard Assist Distance (Feet) 120 Able to Maintain Weight Bearing Status Yes During Gait Assistive Devices Assistive Device Gait Belt,Front Wheeled Walker Orthotic/Prosthetic Devices or Brace: No Gait Deviations General Gait Pattern Antalgic,Decreased Stride Length,Decreased Feet Clearance,Flexed Trunk,Step-to Gait Factors Limiting Gait Function Factors Limiting Gait Function Decreased Strength,Difficulty Following Directions,Limited Range of Motion,Poor Balance, Poor Safety Awareness Comments Gait Comments See mobility comments for details. Stair Climbing Assessment Comments Stair Climbing Comments Not assessed. PT-Balance Assessment Sitting Balance and Reactions Static Sitting Balance Ability Good Dynamic Sitting Balance Ability Good Standing Balance and Reactions Static Standing Balance Ability Fair Dynamic Standing Balance Ability Fair Device Used FWW Balance Tests Single Limb Standing BLE <3 seconds M5 PT-IP Objective Assessments Start: 11/02/20 15:27 Freq: NEEDED Status: Active Protocol: Document 11/02/20 16:15 AW (Rec: 11/02/20 16:42 AW [id number]) Orientation Orientation/Cognition Level of Alertness Confusional State Orientation Name,Place,Situation Language Function Ability No Deficits Noted Safety Awareness Decreased Safety Awareness Memory Description Short Term Impaired Gross Range of Motion Lower Extremity ROM Assessment Right Impaired Strength Lower Extremity Strength Assessment Right Impaired Hip 3+/5 Knee 4-/5 Comments Strength Comments LLE grossly 4+5 Sensation Assessment Sensation Gross Sensation WNL Muscle Tone Muscle Tone WNL Yes M6 PT-IP Treatment Start: 11/02/20 15:27 Freq: NEEDED Status: Active Protocol: Document 11/02/20 16:15 AW (Rec: 11/02/20 16:42 AW [id number]) Physical Therapy Treatment Exercises Exercises Ankle Pumps,Gluteal Sets,Heel Slides Education Education Provided Precautions,Weight Bearing Status,Post-Op Packet,Safety Other Treatments Other Treatment Performed Provided education on role of PT, plan of care, weightbearing status, posterior hip precautions, and safe use of FWW. M7 PT-IP Assessment and Plan Start: 11/02/20 15:27 Freq: NEEDED Status: Active Protocol: Document 11/02/20 16:15 AW (Rec: 11/02/20 16:42 AW [id number]) PT Summary Assessment and Plan Potential Rehabilitation Potential Fair Status of Condition at Evaluation Evolving Summary Impairments Pain,ROM,Strength,Balance, Cognition,Bed Mobility, Transfers,Gait Assessment Summary Keiry is a 75 yo woman with history of repeated R ARLYN dislocations who was evaluated by PT on POD0 following revision R ARLYN with posterior approach. She is modified independent with 4WW at baseline and lives alone. On evaluation, pt requires CGA to mobilize with FWW and frequent cues to maintain posterior hip precautions. Family will be staying with the pt at home. Ideally, pt's family will participate in caregiver training prior to discharge for reinforcement of precautions. Goals Bed Mobility Goal Standby Assistance Transfer Goal Standby Assistance,Front Wheeled Walker,Four Wheeled Walker Gait Goal Standby Assistance,Front Wheel Walker,Four Wheel Walker Gait Distance 200 Other Goals - up/down one step with R rail ascending SBA Frequency of Treatment Frequency Of Treatment Twice a Day Treatment Plan Physical Therapy Treatment Plan Bed Mobility Training,Transfer Training,Gait Training, Therapeutic Exercise,Balance Retraining,Post Op Education, Discharge Planning,Hot or Cold Pack,Neuromuscular Re-ed Other Recommendations and Next Treatment trial abduction brace; Focus caregiver training to reinforce precautions; stair training; assess gait with 4WW if appropriate Precautions Posterior Hip Precautions No Hip Flexion > 90 degrees,No Hip Internal Rotation,No Hip Adduction Other Precautions No BP LUE Recommendations To Nursing Amount of Assist Needed 1 Person Assist Discharge Recommendations PT Discharge Recommendations Home with 05/02 Assist Available Transportation Needs at Discharge Private Vehicle
--- NOTE | 2020-11-02 21:01 | PC.NURSE ---
Patient itchy and restless in bed. Ended up removing most of her right hip aqua cell drsg. Small amount of bloody drainage noted on old drsg, zechariah still intact. This RN replaced the hip drsg with new aqua cell drsg, patient tolerated well.
[2020-11-02] MEDS: ACETAMINOPHEN 325 MG TABLET 650 MG PO (22:06)
[2020-11-02] MEDS: AMLODIPINE 5 MG TABLET PO (22:09)
[2020-11-02] MEDS: ASCORBIC ACID 500 MG TABLET PO (22:10)
[2020-11-02] MEDS: buPROPion SR 150 MG TAB PO (22:10)
[2020-11-02] MEDS: ROSUVASTATIN 10 MG TABLET PO (22:12)
[2020-11-02] MEDS: METOPROLOL IR 25 MG TABLET PO (22:12)
[2020-11-02] MEDS: DONEPEZIL 5 MG TABLET PO (22:13)
[2020-11-02] MEDS: DOCUSATE 100 MG CAPSULE PO (22:13)
[2020-11-03] VITALS: BP 113/50; PULSE 96; RESP 18; TEMP 36.5; O2SAT 95
[2020-11-03] MEDS: IBUPROFEN 400 MG TABLET PO ×3 (00:27→08:25)
[2020-11-03] MEDS: CEFAZOLIN 2 GM/100 ML FROZ.PIGGY IV (00:27)
[2020-11-03] MEDS: diphenhydrAMINE 50 MG/ML VIAL 25 MG IV (01:38)
[2020-11-03] MEDS: LACTATED RINGERS 1,000 ML 125 ML IV (02:28)
[2020-11-03 04:00] VITALS: BP 101/63; PULSE 87; RESP 18; TEMP 36.6; O2SAT 97
[2020-11-03 06:03] LABS: Hematocrit 25.7 % (36-46); Hemoglobin 8.6 g/dL (12.0-16.0)
[2020-11-03] MEDS: ACETAMINOPHEN 325 MG TABLET 650 MG PO (08:22)
[2020-11-03 08:24] VITALS: BP 90/53; PULSE 68; RESP 15; TEMP 36.6; O2SAT 97
[2020-11-03] MEDS: ASCORBIC ACID 500 MG TABLET PO (08:24)
[2020-11-03] MEDS: SERTRALINE 50 MG TABLET 25 MG PO (08:24)
[2020-11-03] MEDS: ASPIRIN EC 81 MG TABLET PO (08:25)
[2020-11-03] MEDS: DOCUSATE 100 MG CAPSULE PO (08:25)
[2020-11-03] MEDS: ANASTROZOLE 1 MG TABLET PO (08:25)
--- NOTE | 2020-11-03 09:38 | PC.NURSE ---
Assess- Patient is confused and does not remember where she is. She ask the same questions over again but is pleasant. Dressing to R.hip is an Aquacel, with small amount of dried drainage in center of dressing. She is having a hard time with her posterior hip precautions because she cannot remember. CMS wnl and ppx2.
[2020-11-03 10:58] VITALS: O2SAT 97
--- NOTE | 2020-11-03 11:27 | P.DS_ITS ---
History of Present Illness History of Present Illness Date Patient Seen: 11/03/20 Time Patient Seen: 11:27 Chief complaint: Right Total Hip Arthroplasty Revision *OPB* Narrative: Pain is mild. Denies fever or chills. Daughter is home to assist her. Otherwise without complaints this morning. Discharge Providers Provider Discharge Date: 11/03/20 Primary care physician: Messi Miranda MD Consults: 11/02/20 06:00 Consult to Anesthesiology Routine Comment: Consulting Provider: Anesthesiologist Reason for consultation: Regional block for post operative pain control 11/02/20 10:17 Consult to Discharge Planning Routine Comment: Consult to Physical Therapy Evaluate & Treat Comment: Physician Instructions: post op ARLYN protocol Consult to Respiratory Therapy Evaluate & Treat Comment: Physician Instructions: Evaluate and treat Discharge provider: Everton Hurd PA-C Summary Hospital Course Discharge Diagnosis: Right hip instability status post right total hip arthroplasty Hospital Course: Procedure: right total hip revision 1 component acetabulum Same procedure as scheduled: Yes Indications: this is a 75-year-old female who had a right total hip arth roplasty about 12 years ago she did well for about 10 years and then fell and started dislocating her right hip. She had a right hip revision about a year ago for instability unfortunately she went on to have recurrent instability. She does have problems with some baseline dementia and has severe difficulty being compliant and has a history of multiple falls. She has had multiple multiple dislocations and brought back to the operating room for revision hip arthroplasty. Surgeon: Milagro Wasserman [employer] Worker: Everton Hurd Anesthesia Type: General and Spinal Operative Notes Findings: severely deficient hip abductors and gluteal tissue with significant atrophy of her glute and severe tearing and retraction of her hip abductors. Prior to revision fairly normal stability for a posterior approach with no posterior impingement, no tendency towards anterior instability, at 45? she was stable to about 70-80 degrees of internal rotation and at 90? she was stable to about 70? of internal rotation, post revision to a dual mobility there was no tendency towards impingement and she was stable maximal extension external rotation and at 45? to about 90? of internal rotation 90? to about 90? of in ternal rotation Closure Type: primary Specimen(s): other ( cultures) Prosthetic devices, grafts, tissues, transplants, or devices: Depuy [place] dual mobility 54 x 47, +8.5 by 28 mm head Estimated Blood Loss (mL): 200 Blood products transfused: none Status at Discharge Cognitive/behavioral status at discharge: at baseline, oriented Functional status at discharge: uses cane/walker Overall status at discharge: patient is progressing back to baseline Time Spent with Patient Time spent: Less than 30 minutes Exam Vital Signs (past 8 hours): - 11/03/20 04:00 11/03/20 08:24 11/03/20 10:58 Temperature 97.9 F 98 F Pulse Rate 87 68 Respiratory Rate 18 15 Blood Pressure 101/63 90/53 L Pulse Oximetry 97 97 97 Oxygen Delivery Method Room Air Oxygen Flow Rate 0 Narrative Exam Narrative: 75-year-old female walking room with physical therapy. Patient no apparent distress. Hip dressing is clean, dry and intact. Neurovascular status is intact distal right lower extremity. Objective Labs Result Diagrams: 11/03/20 05:35 Labs: Laboratory Results - last 24 hr 11/03/20 05:35 Hgb 8.6 L Hct 25.7 L PFSH Medical History (Updated 10/25/20 @ 10:22 by Mary Ellen Birch RN) AAA (abdominal aortic aneurysm) (~2014) Acid reflux Anxiety Breast cancer, left breast (2019) CKD (chronic kidney disease), stage II Confusion Dementia Deviated septum Easy bruisability Former smoker HLD (hyperlipidemia) HTN (hypertension) PAF (paroxysmal atrial fibrillation) Surgical History (Updated 10/25/20 @ 10:19 by Mary Ellen Birch RN) History of arthroplasty of right hip (~2010) History of bilateral tubal ligation History of open reduction and internal fixation (ORIF) procedure (01/28/15) History of 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 joint Hx of bilateral cataract extraction Hx of endovascular stent graft for abdominal aortic aneurysm (~2014) Hx of partial mastectomy (2019) S/p bilateral blepharoplasty Family History (Updated 12/23/19 @ 05:20 by EMILY George) Father Peripheral vascular disease Coronary artery disease Hypertension Mother Alzheimer's dementia Coronary artery disease Social History household members: none Smoking Status: Former smoker alcohol intake: former Discharge Assessment & Plan Assessment and Plan Assessment: Patient progressing as expected status post right hip revision 1 component, acetabulum Plan of Treatment: Patient will be maintained on standard total hip replacement protocol with weight-bearing as tolerated and posterior hip precautions. Aspirin b.i.d. for DVT prophylaxis. Wear brace as directed. Discharge Plan Discharge Plan Patient Disposition: Home Provider Discharge Comment: discharge to home with help from her daughters Discharge orders & Medications Discharge Orders: Discharge (Order); Ordered 11/03/20 Ordered By: Everton Hurd Prescriptions: New acetaminophen 325 mg Tablet 650 mg PO TID Qty: 60 RF: 0 aspirin 81 mg Tablet,Delayed Release (Dr/Ec) 81 mg PO DAILY Qty: 60 RF: 0 ibuprofen 400 mg Tablet 400 mg PO Q4HR Qty: 60 RF: 0 tramadol 50 mg tablet 50 mg PO Q6H PRN (Reason: pain) Qty: 30 RF: 0 Continued anastrozole 1 mg Tablet 1 mg PO DAILY RF: 0 donepezil 5 mg Tablet 5 mg PO BEDTIME RF: 0 sertraline 25 mg Tablet 25 mg PO DAILY RF: 0 Pradaxa 150 mg Capsule 150 mg PO BID RF: 0 bupropion HCl 150 mg Tablet Sustained-Release 12 Hr 150 mg PO BEDTIME RF: 0 lisinopril-hydrochlorothiazide 20-12.5 mg Tablet 1 tab PO DAILY RF: 0 amlodipine 10 mg Tablet 5 mg PO BEDTIME RF: 0 loratadine [Claritin] 10 mg Tablet 10 mg PO DAILY PRN (Reason: Seasonal allergies) RF: 0 rosuvastatin 10 mg Tablet 10 mg PO BEDTIME RF: 0 metoprolol tartrate 25 mg Tablet 25 mg PO BID RF: 0 ascorbic acid (vitamin C) [Vitamin C] 500 mg Tablet 500 mg PO BID Qty: 30 RF: 0 Follow up/Referrals: Messi Miranda MD [Primary Care Provider] - Milagro Wasserman MD [Physician] - (Two weeks) Diet/Activity/Treatments Diet: Diet as Tolerated Activity: walk multiple times a day. Avoid falls. Do not hyperflex your hip. Wear brace as directed Cold/Heat Therapy: Apply ice to hip multiple times a day. Skin/Wound/Dressing Care Report to your healthcare provider any signs of infection, such as:: chills, fever, night sweats, increased pain, unusual drainage and unusual redness Dressing: Leave dressing on. Okay to shower. Visit Report/Discharge Packet Instructions: DI for Hip Replacement Stand Alone Forms: Surgery Discharge Discharge Data Primary Care Provider: Messi Miranda Attending Provider: Milagro Wasserman
--- NOTE | 2020-11-03 11:41 | PT.IPTN ---
Current Diagnoses Dislocation of internal right hip prosthesis, initial encounter (11/02/20) Surgery Performed Operation Date: 11/02/20 07:45 Actual Procedures p Total Hip Arthroplasty Revision- Acetabular component(Right) - Milagro Wasserman MD Physical Therapy Treatment Note M2 PT-IP Current Condition Start: 11/02/20 15:27 Freq: NEEDED Status: Discharge Protocol: Document 11/02/20 16:15 AW (Rec: 11/02/20 16:42 AW [id number]) Physical Therapy Current Condition Current Condition Evaluation Date 11/02/20 Treatment Diagnosis R revision ARLYN with posterior approach; difficulty in walking Onset Date 11/02/20 Precautions Posterior Hip Precautions No Hip Flexion > 90 degrees,No Hip Internal Rotation,No Hip Adduction Other Precautions No BP LUE Weight Bearing Status Weight Bearing Status Weight Bear as Tolerated M3 PT-IP Subjective Start: 11/02/20 15:27 Freq: NEEDED Status: Discharge Protocol: Document 11/03/20 11:10 SP (Rec: 11/03/20 14:50 SP [id number]) Subjective Physical Therapy Visit Type Type Treatment Note Visit Start Time 11:10 Visit Stop Time 11:41 Total Visit Minutes 31 Notes Daughter Pat Mayes attended , completed caregiver training and provided physical assist required throughout tx. NATTY Villafana attended part of tx session for follow up assessment on mobility and if need for use of R hip immobilizer prep DC. Number of GAMBRELER Visits 1 Physical Therapy Visit Comments Patient Comments Pt is willing to participate with PT Patient Goals Hopes to return home with family support Therapy Pain Assessment Pain When Pain Assessed During Mobility Pain Present Pain Present Pain Reported Location R hip Scale Used no pain level quantified, low Description Dull Pain Management Techniques Modification of Treatment, Timing of Activity with Medications M4 PT-IP Mobility and Gait Start: 11/02/20 15:27 Freq: NEEDED Status: Discharge Protocol: Document 11/03/20 11:10 SP (Rec: 11/03/20 14:50 SP [email or web address]) PT-Bed Mobility Assessment Supine to Sit Supine to Sit Standby Assistance Sit to Supine Sit to Supine Standby Assistance Scooting Scooting to Edge of Bed Standby Assistance PT-Transfer Assessment Sit to and From Stand Sit to and from Stand Standby Assistance,Contact Guard Assistance,1 Person Assistance,Use of Upper Extremities Equipment Transfer Assistive Device Gait Belt,Front Wheeled Walker ,4 Wheeled Walker Orthotic/Prosthetic Devices or Brace: No Transfers Transfer Destination Bed,Chair,Toilet Transfer Technique Pt ambulated using FWW, 4WW. Transfer Ability Level of Assist Standby Assistance,Contact Guard Assistance,1 Person Assistance,Use of Upper Extremities Comments Mobility Comments Pt seated in chair when arrived. Daughter just arrived for caregiver training. Sit<> stand cues provided for proper hand placement, positioning of FWW/ 4WW in front pre sit/ stand/ at sink/ toilet transfers, brake mgt of 4WW for safety SBA, pt tends to leave AD off to side. Pt ambulated into bathroom step to patterning use of FWW, cued for keeping FWW in front during pivot, cued use of grab bar for slow descent to toilet, self hygiene mgt in sitting, sit>stand use of grab bar SBA, ambulated to sink safety FWW positioning stable balance no UE support required . Pt sat back in chair, GAMBRELER provided 4WW for safety assessment, occasional cuing required for brake mgt, she ambulated further into hallway down to stairs and back approx 450 ft, ascend/descend CG- 10 % A by daughter using SPC/ PRICE LISTER. When returned to room stand>sit>supine SBA, reviewed LE exercises, returned to sitting SBA then SPT to chair with improved 4WW mgt. Pt is ok to return home with family to assist her 05/02 available. Pt had call light and all needs in reach, daughter was going to help her dress as needed in sitting then reattach her chair alarm. Gait Assessment Gait Gait Assistance Required: Standby Assistance,Contact Guard Assist Distance (Feet) 450 Able to Maintain Weight Bearing Status Yes During Gait Assistive Devices Assistive Device Gait Belt,Front Wheeled Walker ,4 Wheeled Walker Orthotic/Prosthetic Devices or Brace: No Gait Deviations General Gait Pattern Antalgic,Decreased Stride Length,Decreased Feet Clearance Factors Limiting Gait Function Factors Limiting Gait Function Decreased Strength,Difficulty Following Directions,Limited Range of Motion,Poor Balance, Poor Safety Awareness Comments Gait Comments Pt receiprocol gait using 4WW, Min cuing for body closer to 4WW, tall posture, slower pacing for safety SBA. Stair Climbing Assessment Evaluation Level of Assist On Stairs Contact Guard Assistance,1 Person Assistance Devices Stair Climbing Assistive Devices Straight Cane Technique/Endurance Stair Climbing Direction Ascend and Descend Stair Climbing Technique Step to Step Number of Steps Climbed 3 Stair Climbing Set # Repetitions (reps) 1 Comments Stair Climbing Comments Step to patterning ascend/ descend 3 stairs using SPC in RUE and PRICE LISTER by daughter with LUE while providing CG- 10%A. Daughter and pt agreed might install a grab bar outside of door to give more sturdy support but able to utilize SPC and PRICE LISTER at this time when returns home. PT-Balance Assessment Sitting Balance and Reactions Static Sitting Balance Ability Good Dynamic Sitting Balance Ability Good Standing Balance and Reactions Static Standing Balance Ability Fair Dynamic Standing Balance Ability Fair Device Used FWW, 4WW M5 PT-IP Objective Assessments Start: 11/02/20 15:27 Freq: NEEDED Status: Discharge Protocol: Document 11/02/20 16:15 AW (Rec: 11/02/20 16:42 AW [id number]) Orientation Orientation/Cognition Level of Alertness Confusional State Orientation Name,Place,Situation Language Function Ability No Deficits Noted Safety Awareness Decreased Safety Awareness Memory Description Short Term Impaired Gross Range of Motion Lower Extremity ROM Assessment Right Impaired Strength Lower Extremity Strength Assessment Right Impaired Hip 3+/5 Knee 4-/5 Comments Strength Comments LLE grossly 4+5 Sensation Assessment Sensation Gross Sensation WNL Muscle Tone Muscle Tone WNL Yes M6 PT-IP Treatment Start: 11/02/20 15:27 Freq: NEEDED Status: Discharge Protocol: Document 11/03/20 11:10 SP (Rec: 11/03/20 14:50 SP [email or web address]) Physical Therapy Treatment Education Education Provided Precautions,Weight Bearing Status,Post-Op Packet,Safety Equipment Issued Equipment Type and Company Pt able to don/doff R hip immobilizer self and improved stability during gait stance phase WB. Other Treatments Other Treatment Performed Provided education review on posterior hip precautions, and safe use and positioning of 4WW w/ daughter carryover cuing. M7 PT-IP Assessment and Plan Start: 11/02/20 15:27 Freq: NEEDED Status: Discharge Protocol: Document 11/03/20 11:10 SP (Rec: 11/03/20 14:50 SP [email or web address]) PT Summary Assessment and Plan Potential Rehabilitation Potential Fair Status of Condition at Evaluation Evolving Summary Impairments Pain,ROM,Strength,Balance, Cognition,Bed Mobility, Transfers,Gait Progress Towards Goals Progressing Toward Goals Assessment Summary Pt requires SBA during bed mobility, sBA during transfers , CGA initially then decreased to sBA with min cuing for safety using 4WW, good recall to precautions. Pt reported wanted to continue use of R hip immobilizer has from previous surgery with NATTY Villafana in aggreement upon arrival for check up to prepare for DC . Pt is able to don/doff R hip immobilizer self. Family will be staying with the pt at home. Family completed caregiver training. Pt is ok to return home with family to assist when medically cleared. GAMBRELER recommending HHPT at this time. Goals Bed Mobility Goal Standby Assistance Transfer Goal Standby Assistance,Front Wheeled Walker,Four Wheeled Walker Gait Goal Standby Assistance,Front Wheel Walker,Four Wheel Walker Gait Distance 200 Other Goals - up/down one step with R rail ascending SBA Frequency of Treatment Frequency Of Treatment Twice a Day Treatment Plan Physical Therapy Treatment Plan Bed Mobility Training,Transfer Training,Gait Training, Therapeutic Exercise,Balance Retraining,Post Op Education, Discharge Planning,Hot or Cold Pack,Neuromuscular Re-ed Other Recommendations and Next Treatment LE post op ex, continue gait Focus safety 4WW, Precautions Posterior Hip Precautions No Hip Flexion > 90 degrees,No Hip Internal Rotation,No Hip Adduction Other Precautions No BP LUE Recommendations To Nursing Amount of Assist Needed Standby Assistance Discharge Recommendations PT Discharge Recommendations Home with / Assist Available,Home Health Transportation Needs at Discharge Private Vehicle
[2020-11-03 11:42] VITALS: BP 110/67; PULSE 69; RESP 15; TEMP 36.5; O2SAT 97
--- NOTE | 2020-11-03 11:59 | CM.IDA ---
Initial DCP Assessment Note Pt is a 75 yo female, resident of [place], now POD#1 from Rt hip surgery w/ Dr Wasserman PCP: Messi Miranda Payer: Crescencio BLUNT Reviewed chart, pt discussed in multidisciplinary rounds this morning. Therapy has cleared pt for return home w/family to assist and pt has planned for home, patient eager to return home w/family, DC order from Ortho has already been initiated this morning. No needs expected from DC planning team although will remain available in case this changes today. ALLYSON Jewell Discharge Planning/Care Management CM Discharge Assessment Start: 11/03/20 11:52 Freq: Status: Active Protocol: Document 11/03/20 11:52 JOSE (Rec: 11/03/20 11:59 JOSE [id number]) Discharge Planning Assessment Assigned Bond Clerk ALLYSON Billings DPOA/Assigned Designee Name Daniella - Daughter Gin - Daughter Contact Information Daniella: [phone] Gin: [phone] Advance Directives? Yes Advance Directives on File No History Provided By Patient,Medical Record Prior Living Arrangements House Household Members none Independent with ADL's Yes: Mod Indp, uses 4WW Pt lives alone and completes ADLs without assist Is patient alert and oriented? Yes: Forgetfull, short term memory loss Needs Assistance With Home Chores / Shopping Patient/Family Preference OP PT Therapy Barriers to Discharge No Discharge Plan Home Transportation Arrangement Family to provide transport. Referrals Initiated None needed
== END 2020-11-03 12:13 | disposition home or self-care (01) ==
LOC: OR 06:11 → AC 06:13
PROVIDERS: PCP Family Medicine; Referring Provider Family Medicine; Visit Provider Orthopaedic Surgery
PROC: (CPT 27137; principal; 2020-11-02 07:45)
DX: T84.020A Dislocation of internal right hip prosthesis, initial encounter (principal); F03.90 Unspecified dementia, unspecified severity, without behavioral disturbance, psychotic disturbance, mood disturbance, and anxiety; Z91.81 History of falling; I48.91 Unspecified atrial fibrillation; F41.9 Anxiety disorder, unspecified; D64.9 Anemia, unspecified; E78.5 Hyperlipidemia, unspecified; I10 Essential (primary) hypertension
CPT/HCPCS: 27137; 36415; 73502; 85014; 85018; 87070; 87075; 87077; 87147; 87186; 87205; 94762; 97116; 97161; 97530; C1776; C9290; J0171; J0690; J1100; J1200; J2250; J2274; J2405; J2704; J3010